=== PATIENT | female | born 1975 | race Caucasian/White ===

== ENCOUNTER 2018-02-02 00:15 | Inpatient (IN) | payer OTHER ==
[2018-02-02] MEDS ORDERED: SODIUM CHLORIDE 0.9% 1,000 ML IV STA (00:25)
[2018-02-02] MEDS ORDERED: MORPHINE SULFATE 2 MG/ML SYRINGE IV STA (00:25)
--- NOTE | 2018-02-02 00:36 | ED ---
General Adult HPI - General Chief complaint: Abdominal Pain Stated complaint: Upper abd pain Time Seen by Provider: 02/02/18 00:25 Source: patient, RN notes reviewed, old records reviewed Mode of arrival: ambulatory Limitations: no limitations - History of Present Illness Initial comments: This is a 42-year-old female the ER for evaluation. Patient does say for evaluation regarding abdominal pain epigastric right upper quadrant abdominal pain radiation to back radiation to shoulder. Positive nausea. Worse when she eats. Symptoms and off for a week, progressively worse tonight sleep. Patient has no prior surgical history. Patient is to have blood pressure issues, states she does not take current blood pressure medication. Denies chest pain denies shortness of breath no episodes of diaphoresis. - Related Data Previous Rx's Medication Instructions Recorded Acetaminophen-Codeine 300-30mg 1 each PO Q6H PRN #18 tablet 02/23/14 [Tylenol #3] Ibuprofen [Motrin] 800 mg PO Q8HR #30 tab 02/23/14 Allergies Allergy/AdvReac Type Severity Reaction Status Date / Time No Known Allergies Allergy Verified 02/02/18 00:21 Review of Systems ROS Statement: Those systems with pertinent positive or pertinent negative responses have been documented in the HPI. ROS Other: All systems not noted in ROS Statement are negative. Past Medical History Past Medical History: No Reported History History of Any Multi-Drug Resistant Organisms: None Reported Additional Past Surgical History / Comment(s): parotid gland mass with lymph nodes Past Psychological History: No Psychological Hx Reported Smoking Status: Current every day smoker Past Alcohol Use History: None Reported Past Drug Use History: None Reported General Exam Limitations: no limitations General appearance: alert, in no apparent distress, anxious, obese Head exam: Present: atraumatic, normocephalic, normal inspection Eye exam: Present: normal appearance, PERRL, EOMI. Absent: scleral icterus, conjunctival injection, periorbital swelling ENT exam: Present: normal exam, mucous membranes moist Neck exam: Present: normal inspection. Absent: tenderness, meningismus, lymphadenopathy Respiratory exam: Present: normal lung sounds bilaterally. Absent: respiratory distress, wheezes, rales, rhonchi, stridor Cardiovascular Exam: Present: normal rhythm, tachycardia, normal heart sounds. Absent: systolic murmur, diastolic murmur, rubs, gallop, clicks GI/Abdominal exam: Present: soft, normal bowel sounds. Absent: distended, tenderness, guarding, rebound, rigid Extremities exam: Present: normal inspection, full ROM, normal capillary refill. Absent: tenderness, pedal edema, joint swelling, calf tenderness Back exam: Present: normal inspection Neurological exam: Present: alert, oriented X3, CN II-XII intact Psychiatric exam: Present: normal affect, normal mood Skin exam: Present: warm, dry, intact, normal color. Absent: rash Course Vital Signs 02/02/18 02/02/18 02/02/18 00:18 02:00 02:17 Temperature 98.3 F Pulse Rate 116 H 85 91 Respiratory 20 18 19 Rate Blood Pressure 214/133 172/84 184/70 O2 Sat by Pulse 99 98 98 Oximetry 02/02/18 02/02/18 03:35 04:00 Temperature Pulse Rate 84 93 Respiratory 16 15 Rate Blood Pressure 176/96 179/83 O2 Sat by Pulse 96 100 Oximetry EKG Findings - EKG Comments: EKG Findings:: EKG shows sinus rhythm rate of 82, NM 170, QRS 88, QTc 443 Medical Decision Making - Medical Decision Making 42 female the ER with nonspecific abdominal, chest pain. Patient is elevated troponin, CT negative. Patient will be admitted for and STEMI, cardiac evaluation - Lab Data Result diagrams: 02/02/18 01:00 02/02/18 01:00 Lab Results 02/02/18 02/02/18 02/02/18 Range/Units 01:00 01:00 01:00 WBC 9.9 (3.8-10.6) k/uL RBC 4.82 (3.80-5.40) m/uL Hgb 13.8 (11.4-16.0) gm/dL Hct 40.1 (34.0-46.0) % MCV 83.2 (80.0-100.0) fL MCH 28.6 (25.0-35.0) pg MCHC 34.4 (31.0-37.0) g/dL RDW 12.8 (11.5-15.5) % Plt Count 227 (150-450) k/uL Neutrophils % 78 % Lymphocytes % 15 % Monocytes % 5 % Eosinophils % 2 % Basophils % 0 % Neutrophils # 7.8 H (1.3-7.7) k/uL Lymphocytes # 1.4 (1.0-4.8) k/uL Monocytes # 0.5 (0-1.0) k/uL Eosinophils # 0.2 (0-0.7) k/uL Basophils # 0.0 (0-0.2) k/uL PT (9.0-12.0) sec INR (<1.2) APTT (22.0-30.0) sec Sodium 140 (137-145) mmol/L Potassium 3.9 (3.5-5.1) mmol/L Chloride 104 (98-107) mmol/L Carbon Dioxide 24 (22-30) mmol/L Anion Gap 12 mmol/L BUN 15 (7-17) mg/dL Creatinine 0.70 (0.52-1.04) mg/dL Est GFR (CKD-EPI)AfAm >90 (>60 ml/min/1.73 sqM) Est GFR (CKD-EPI)NonAf >90 (>60 ml/min/1.73 sqM) Glucose 302 H (74-99) mg/dL Calcium 9.7 (8.4-10.2) mg/dL Total Bilirubin 0.4 (0.2-1.3) mg/dL AST 23 (14-36) U/L ALT 36 (9-52) U/L Alkaline Phosphatase 87 (38-126) U/L Total Creatine Kinase 67 (30-135) U/L CK-MB (CK-2) 1.1 (0.0-2.4) ng/mL CK-MB (CK-2) Rel Index 1.6 Troponin I 0.160 H* (0.000-0.034) ng/mL Total Protein 7.9 (6.3-8.2) g/dL Albumin 4.5 (3.5-5.0) g/dL Amylase 42 (30-110) U/L Lipase 75 (23-300) U/L Urine Color Urine Appearance (Clear) Urine pH (5.0-8.0) Ur Specific [place] (1.001-1.035) Urine Protein (Negative) Urine Glucose (UA) (Negative) Urine Ketones (Negative) Urine Blood (Negative) Urine Nitrite (Negative) Urine Bilirubin (Negative) Urine Urobilinogen (<2.0) mg/dL Ur Leukocyte Esterase (Negative) Urine HCG, Qual (Not Detectd) 02/02/18 02/02/18 02/02/18 Range/Units 01:00 01:00 01:00 WBC (3.8-10.6) k/uL RBC (3.80-5.40) m/uL Hgb (11.4-16.0) gm/dL Hct (34.0-46.0) % MCV (80.0-100.0) fL MCH (25.0-35.0) pg MCHC (31.0-37.0) g/dL RDW (11.5-15.5) % Plt Count (150-450) k/uL Neutrophils % % Lymphocytes % % Monocytes % % Eosinophils % % Basophils % % Neutrophils # (1.3-7.7) k/uL Lymphocytes # (1.0-4.8) k/uL Monocytes # (0-1.0) k/uL Eosinophils # (0-0.7) k/uL Basophils # (0-0.2) k/uL PT 9.5 (9.0-12.0) sec INR 1.0 (<1.2) APTT 22.4 (22.0-30.0) sec Sodium (137-145) mmol/L Potassium (3.5-5.1) mmol/L Chloride (98-107) mmol/L Carbon Dioxide (22-30) mmol/L Anion Gap mmol/L BUN (7-17) mg/dL Creatinine (0.52-1.04) mg/dL Est GFR (CKD-EPI)AfAm (>60 ml/min/1.73 sqM) Est GFR (CKD-EPI)NonAf (>60 ml/min/1.73 sqM) Glucose (74-99) mg/dL Calcium (8.4-10.2) mg/dL Total Bilirubin (0.2-1.3) mg/dL AST (14-36) U/L ALT (9-52) U/L Alkaline Phosphatase (38-126) U/L Total Creatine Kinase (30-135) U/L CK-MB (CK-2) (0.0-2.4) ng/mL CK-MB (CK-2) Rel Index Troponin I (0.000-0.034) ng/mL Total Protein (6.3-8.2) g/dL Albumin (3.5-5.0) g/dL Amylase (30-110) U/L Lipase (23-300) U/L Urine Color Colorless Urine Appearance Clear (Clear) Urine pH 6.0 (5.0-8.0) Ur Specific [place] 1.002 (1.001-1.035) Urine Protein Negative (Negative) Urine Glucose (UA) 4+ H (Negative) Urine Ketones Negative (Negative) Urine Blood Negative (Negative) Urine Nitrite Negative (Negative) Urine Bilirubin Negative (Negative) Urine Urobilinogen <2.0 (<2.0) mg/dL Ur Leukocyte Esterase Negative (Negative) Urine HCG, Qual Not Detected (Not Detectd) - Radiology Data Radiology results: report reviewed (CTA chest abdomen pelvis negative for acute disease, ultrasound color negative for acute disease), image reviewed Critical Care Time Critical Care Time: Yes Total Critical Care Time: 31 Disposition Clinical Impression: NSTEMI (non-ST elevated myocardial infarction) Disposition: ADMITTED IP TO THIS [facility] Condition: Serious Is patient prescribed a controlled substance at d/c from ED?: No
[2018-02-02] MEDS ORDERED: LABETALOL 5 MG/ML VIAL MDV IVP STA (00:57)
[2018-02-02 01:11] LABS: Appearance,Urine Clear (Clear); Basophils % (A) 0 %; Bilirubin,Urine Negative (Negative); Blood,Urine Negative (Negative); Color,Urine Colorless; Eosinophils # (A) 0.2 k/uL (0-0.7); Eosinophils % (A) 2 %; Glucose,Urine (UA) 4+ (Negative); HCT 40.1 % (34.0-46.0); HGB 13.8 gm/dL (11.4-16.0); Ketones,Urine Negative (Negative); Leukocyte Esterase,Urine Negative (Negative); Lymphocytes # (A) 1.4 k/uL (1.0-4.8); Lymphocytes % (A) 15 %; MCH 28.6 pg (25.0-35.0); MCHC 34.4 g/dL (31.0-37.0); MCV 83.2 fL (80.0-100.0); Mean Platelet Volume 7.1; Monocytes # (A) 0.5 k/uL (0-1.0); Monocytes % (A) 5 %; Neutrophils # (A) 7.8 k/uL (1.3-7.7); Neutrophils % (A) 78 %; Nitrite,Urine Negative (Negative); Platelet Count 227 k/uL (150-450); Protein,Urine Negative (Negative); RBC 4.82 m/uL (3.80-5.40); RDW 12.8 % (11.5-15.5); Specific Gravity,Urine 1.002 (1.001-1.035); Urobilinogen,Urine <2.0 mg/dL (<2.0); WBC 9.9 k/uL (3.8-10.6)
[2018-02-02 01:19] LABS: ALT 36 U/L (9-52); AST 23 U/L (14-36); Albumin 4.5 g/dL (3.5-5.0); Alkaline Phosphatase 87 U/L (38-126); Amylase 42 U/L (30-110); Anion Gap 12 mmol/L; Blood Urea Nitrogen 15 mg/dL (7-17); Calcium 9.7 mg/dL (8.4-10.2); Carbon Dioxide 24 mmol/L (22-30); Chloride 104 mmol/L (98-107); Glucose 302 mg/dL (74-99); Lipase 75 U/L (23-300); Potassium 3.9 mmol/L (3.5-5.1); Sodium 140 mmol/L (137-145); Total Bilirubin 0.4 mg/dL (0.2-1.3); Total Protein 7.9 g/dL (6.3-8.2)
[2018-02-02 01:21] LABS: Partial Thromboplastin Time 22.4 sec (22.0-30.0); Prothrombin Time 9.5 sec (9.0-12.0)
[2018-02-02 01:49] LABS: Creatine Kinase MB 1.1 ng/mL (0.0-2.4)
[2018-02-02 01:51] LABS: Troponin I 0.16 ng/mL (0.000-0.034)
--- NOTE | 2018-02-02 02:06 | US ---
EXAMINATION TYPE: US gallbladder DATE OF EXAM: 02/02/2018 COMPARISON: NONE CLINICAL HISTORY: Pain. RUQ pain. EXAM MEASUREMENTS: Liver Length: 19.6 cm Gallbladder Wall: 0.35 cm CBD: 0.43 cm Right Kidney: 10.6 x 4.6 x 5.0 cm Pancreas: Tail obscured by overlying bowel gas Liver: Increased attenuation Gallbladder: No stones seen wall is upper limits. Evidence for sonographic Mabry's sign: No CBD: wnl Right Kidney: wnl IMPRESSION: Negative right upper quadrant abdominal sonogram. No gallstones or dilated ducts. No free fluid.
--- NOTE | 2018-02-02 02:46 | CT ---
EXAMINATION TYPE: CT angio chest DATE OF EXAM: 02/02/2018 2:36 AM COMPARISON: NONE HISTORY: upper abdominal pain CT DLP: 2071.00 mGycm Automated exposure control for dose reduction was used. CONTRAST: CTA scan of the thorax is performed with IV Contrast, patient injected with 100 mL of Isovue 370, pul monary embolism protocol. There are 3-D post processed images.. FINDINGS: There is a 2 x 1 cm reticular infiltrate in the superior segment left lower lobe. The other lung fiel ds are clear. There is no pleural effusion. There is no pericardial effusion. Thoracic aorta shows no evidence of aneurysm or dissection. There are no filling defects in the pulmonary arteries. There ar e no hilar masses. There is no mediastinal adenopathy. The bony thorax is intact. IMPRESSION: SMALL IRREGULAR INFILTRATE IN THE LEFT LOWER LOBE PROBABLY RELATED TO INFLAMMATORY DISEASE. NO EVIDEN CE OF PULMONARY EMBOLISM.
--- NOTE | 2018-02-02 02:48 | CT ---
EXAMINATION TYPE: CT abdomen pelvis w con DATE OF EXAM: 02/02/2018 COMPARISON: NONE HISTORY: upper abdominal pain CT DLP: 2071.00 mGycm Automated exposure control for dose reduction was used. TECHNIQUE: Helical acquisition of images was performed from the lung bases through the pelvis. CONTRAST: Performed without Oral Contrast and with IV Contrast, patient injected with 100 mL of Isovue 370. FINDINGS: The lung bases are clear. There is no pleural effusion. Liver spleen pancreas gallbladder appear normal. Bile ducts are not dilated. There is no adrenal mass . Kidneys show satisfactory contrast opacification. There is no hydronephrosis. There is no retroperi toneal adenopathy. Ureters are not dilated. There is no ascites. Bladder distends smoothly. Uterus is anteverted. I see no bony destructive process. There is spurring in the lower thoracic spine. I see no intestinal wall thickening. There are no dilated loops. Appendix appears normal. IMPRESSION: NEGATIVE CT SCAN OF THE ABDOMEN AND PELVIS. I DO NOT SEE A CAUSE FOR ABDOMINAL PAIN.
[2018-02-02] MEDS ORDERED: HEPARIN SODIUM,PORCINE 5,000 UNIT/ML 1 ML VIAL IV PRN (03:21)
[2018-02-02] MEDS ORDERED: HEPARIN SODIUM,PORCINE 5,000 UNIT/ML 1 ML VIAL IV ONE (03:21)
[2018-02-02] MEDS ORDERED: NITROGLYCERIN SL TABS 0.4 MG TAB SUBLINGUAL PRN ×2 (03:21→10:27)
[2018-02-02] MEDS ORDERED: HEPARIN SODIUM,PORCINE/D5W PMX 25,000 UNIT in DEXTROSE/WATER 1 500ML.BAG IV SCH (03:45)
[2018-02-02 04:20] LABS: Glucose,Whole Blood 222 mg/dL (75-99)
[2018-02-02 06:48] LABS: Glucose,Whole Blood 197 mg/dL (75-99)
[2018-02-02 07:16] LABS: Mean Platelet Volume 7.4; Platelet Count 255 k/uL (150-450)
[2018-02-02 07:45] LABS: Basophils % (A) 0 %; Eosinophils % (A) 0 %; HCT 38.3 % (34.0-46.0); HGB 13.3 gm/dL (11.4-16.0); Lymphocytes # (A) 1.7 k/uL (1.0-4.8); Lymphocytes % (A) 18 %; MCH 29.3 pg (25.0-35.0); MCHC 34.9 g/dL (31.0-37.0); MCV 84.1 fL (80.0-100.0); Monocytes # (A) 0.4 k/uL (0-1.0); Monocytes % (A) 5 %; Neutrophils # (A) 7.3 k/uL (1.3-7.7); Neutrophils % (A) 75 %; RBC 4.55 m/uL (3.80-5.40); WBC 9.7 k/uL (3.8-10.6)
[2018-02-02 07:51] LABS: ALT 40 U/L (9-52); AST 23 U/L (14-36); Albumin 4.2 g/dL (3.5-5.0); Alkaline Phosphatase 81 U/L (38-126); Blood Urea Nitrogen 12 mg/dL (7-17); Calcium 9.3 mg/dL (8.4-10.2); Carbon Dioxide 23 mmol/L (22-30); Creatine Kinase MB 1.5 ng/mL (0.0-2.4); Glucose 201 mg/dL (74-99); Potassium 4.1 mmol/L (3.5-5.1); Sodium 140 mmol/L (137-145); Total Bilirubin 0.6 mg/dL (0.2-1.3); Total Protein 7.5 g/dL (6.3-8.2)
[2018-02-02 07:57] LABS: Troponin I 0.21 ng/mL (0.000-0.034)
[2018-02-02 08:04] LABS: Anion Gap 13 mmol/L; Chloride 104 mmol/L (98-107)
[2018-02-02 08:14] LABS: Glucose,Whole Blood 192 mg/dL (75-99)
[2018-02-02] MEDS: INSULIN ASPART 100 UNIT/ML 1 ML 10 ML VIAL SQ SCH ×4 (08:18→21:32)
[2018-02-02] MEDS: METOPROLOL TARTRATE 50 MG TAB PO SCH ×2 (08:18→21:32)
[2018-02-02] MEDS: ATORVASTATIN 80 MG TAB PO SCH (08:18)
[2018-02-02] MEDS ORDERED: cloNIDine HCL 0.1 MG TAB PO PRN (09:26)
[2018-02-02] MEDS ORDERED: LISINOPRIL 10 MG TAB PO SCH (09:30)
[2018-02-02] MEDS ORDERED: LISINOPRIL 10 MG TAB PO STA (10:08)
[2018-02-02] MEDS ORDERED: SODIUM CHLORIDE 0.9% 1,000 ML in EMPTY BAG 1 BAG IV ONE (10:27)
[2018-02-02] MEDS ORDERED: ATORVASTATIN 80 MG TAB PO STA (10:27)
[2018-02-02] MEDS ORDERED: ALPRAZolam 0.5 MG TAB PO PRN (10:27)
[2018-02-02] MEDS ORDERED: ALPRAZolam 0.25 MG TAB PO PRN (10:27)
[2018-02-02] MEDS ORDERED: ASPIRIN 325 MG TAB PO STA (10:29)
--- NOTE | 2018-02-02 10:53 | CONS ---
CONSULTATION Rachel Orona is a 42-year-old female who presented with right-sided chest discomfort and midsternal heartburn-like symptoms. She has been experiencing this for quite some time now and thought it was her gallbladder. The reason she came in last night is because when she laid down the pain got worse and she found herself quite uncomfortable. On admission, she was worked up for gallstone. She had a CT of the chest, CT of abdomen and gallbladder ultrasound. However, her 12-lead ECG showed sinus rhythm with ST elevation in the inferior leads with IA depression in the inferior leads and in the lateral precordial leads and IA elevation in aVR. Her followup 12-lead ECG shows the IA depression in the inferior leads has become even more prominent and there is clear IA elevation in aVR. She is in sinus rhythm. Cardiac enzymes are abnormal, hence the consult. Cardiac enzymes are 0.16 and 0.21. Labs are reviewed. Her white count is normal. Hemoglobin is normal. Electrolytes are normal. Kidney function is normal. Glucose is elevated. Amylase, lipase are normal. UA shows 4+ glucose. She also has a history of hypertension. PAST HISTORY: Past history of hypertension, increased BMI of 41, diabetes type 2, elevated glucose and recent upper respiratory symptoms, which she thought were allergies. ALLERGIES: No known drug allergies. MEDICATIONS AT HOME: Ibuprofen. She was taking antihypertensive therapy as well as diabetes medication, but these were discontinued because she had lost a significant amount of weight. REVIEW OF SYSTEMS: No recent fever, chills, or rigors. No cough or expectoration. No nausea, vomiting, or diarrhea, but heartburn like symptoms, chest discomfort on the right side around the breast and going around to the back. No hematuria or dysuria. No strokes or seizures. No skin lesions or musculoskeletal complaints. PHYSICAL EXAMINATION: On examination, her blood pressure is elevated 158/77, 189/93 and 189/86 mmHg. Head and neck examination is normal. Heart sounds S1, S2 are normal. No rub. No gallop. No murmurs. Breath sounds are clear. Abdomen is soft, nontender. Extremities are warm. No edema. With deep palpation in the epigastrium, she feels a little uncomfortable. IMPRESSION: 1. Right-sided chest discomfort and heartburn-like symptoms that got worse when she lies flat. A 12-lead ECG shows minimal ST elevation in the inferior leads, but with prominent IA depression in the first as well as in the follow-up ECG in the inferior leads IA elevation in aVR and slight IA depression in the lateral precordial leads. 2. Increased body mass index of greater than 40. 3. Diabetes type 2. 4. Hypertension. SUGGEST: This is most likely viral pericarditis. I will check an ESR as well as viral titers for Coxsackievirus, parvovirus, adeno and echovirus. However, since she has ST elevation with abnormal cardiac enzymes, a coronary angiogram will be considered. I will stop her heparin, increase lisinopril to 20 mg twice daily. Continue statins. Reduce aspirin to 81 mg p.o. daily and a 2D echo and Doppler study. This was discussed with the patient. EDA / LACEY: [id number] /
[2018-02-02] MEDS: LINAGLIPTIN 5 MG TABLET PO SCH (11:00)
--- NOTE | 2018-02-02 12:17 | ECHOF ---
Referral Reason:nstemi MEASUREMENTS -------- HEIGHT: 172.7 cm WEIGHT: 121.6 kg BP: 189/86 IVSd: 1.4 cm (0.6 - 1.1) LVIDd: 5.1 cm (3.9 - 5.3) LVPWd: 1.4 cm (0.6 - 1.1) IVSs: 1.9 cm LVIDs: 3.7 cm LVPWs: 1.5 cm LAESV Index (A-L): 27.63 ml/m Ao Diam: 3.0 cm (2.0 - 3.7) AV Cusp: 2.2 cm (1.5 - 2.6) LA Diam: 3.9 cm (2.7 - 3.8) MV EXCURSION: 11.800 mm (> 18.000) MV EF SLOPE: 259 mm/s (70 - 150) EPSS: 0.6 cm MV E Karthik: 1.14 m/s MV DecT: 184 ms MV A Karthik: 1.06 m/s MV E/A Ratio: 1.07 RAP: 5.00 mmHg RVSP: 8.99 mmHg FINDINGS -------- Sinus rhythm. This was a technically difficult study with suboptimal views. The left ventricular size is normal. There is moderate concentric left ventricular hypertrophy. O verall left ventricular systolic function is normal with, an EF between 55 - 60 %. The right ventricle is normal in size and function. The left atrium is normal in size. The right atrium is normal in size. Lumason used The aortic valve is trileaflet, and appears structurally normal. No aortic stenosis or regurgitation. There is trace mitral regurgitation. Trace tricuspid regurgitation present. The right ventricular systolic pressure, as measured by Dopp ler, is 8.99mmHg. Pulmonic valve appears structurally normal. The aortic root size is normal. The pericardium is normal. CONCLUSIONS -------- 1. Sinus rhythm. 2. This was a technically difficult study with suboptimal views. 3. The left ventricular size is normal. 4. There is moderate concentric left ventricular hypertrophy. 5. The right ventricle is normal in size and function. 6. The left atrium is normal in size. 7. The right atrium is normal in size. 8. Lumason used 9. The aortic valve is trileaflet, and appears structurally normal. No aortic stenosis or regurgitati on. 10. There is trace mitral regurgitation. 11. Trace tricuspid regurgitation present. 12. The right ventricular systolic pressure, as measured by Doppler, is 8.99mmHg. 13. Pulmonic valve appears structurally normal. 14. The aortic root size is normal. 15. The pericardium is normal. STUDENT SUCCESS ADVISOR: Aditi Lui RDCS
[2018-02-02 12:44] LABS: Hemoglobin A1C 7.4 % (4.0-6.0)
--- NOTE | 2018-02-02 12:44 | P.HPIM ---
History of Present Illness H&P Date: 02/02/18 Chief Complaint: abdominal pain/chest pain This is a 42-year-old female patient to be established with Dr. schaffer. Her first appointment is February 11. Patient states that she had pain were running across her abdomen on the right side when around and into the back was a burning type pain. She thought it was related to her gallbladder. She states she sometimes have GERD symptoms as well. She has had this on and off for several weeks but last night it was significantly worse. She states it does not bother her with exertion. She normally walks 5 miles per day. She has had weight loss of 150 pounds through portion control and walking. She denies having obstructive sleep apnea. She has been treated for hypertension and diabetes on the past but was taken off for years ago due to improvement of her numbers. Patient came into [facility] emergency center for evaluation. Her initial blood pressure was 214/133 and patient was given a dose of IV labetalol with improvement. White count and hemoglobin were normal. Blood sugar was 302, creatinine 0.7. Electrolytes were within normal limits. Liver function tests were within normal limits. Urine hCG was not detected. Urinalysis was negative for infection. There was glucose 4+. CT of the abdomen and pelvis with contrast reveals no acute findings. CTA of the chest shows small irregular infiltrate in the left lower lobe probably related to inflammatory disease. No pulmonary embolism. Gallbladder ultrasound is negative. Patient was admitted into the intensive care unit as overflow and started on heparin drip and consult with cardiology requested. Troponins have been 0.160 and 0.210. Echocardiogram reveals EF of 55-60%, moderate concentric left ventricular hypertrophy, trace mitral regurgitation, trace tricuspid regurgitation. Patient has been seen by Dr. Galvez for most likely viral pericarditis. ESR and viral studies ordered heparin drip discontinued and lisinopril increased and reduced aspirin 81 mg. Review of Systems All systems: negative Constitutional: Denies chills, Denies fever Eyes: denies blurred vision, denies pain Ears, nose, mouth and throat: Denies headache, Denies sore throat, Denies vertigo Cardiovascular: Reports chest pain, Denies leg edema, Denies lightheadedness, Denies shortness of breath, Denies syncope Respiratory: Denies congestion, Denies cough, Denies cough with sputum, Denies dyspnea, Denies excessive sputum, Denies hemoptysis, Denies home oxygen, Denies wheezing Gastrointestinal: Reports abdominal pain, Denies diarrhea, Denies nausea, Denies vomiting Genitourinary: Denies dysuria, Denies hematuria, Denies urgency, Denies urinary frequency Musculoskeletal: Denies myalgias Integumentary: Denies pruritus, Denies rash, Denies wounds Neurological: Denies numbness, Denies weakness Psychiatric: Denies anxiety, Denies depression Endocrine: Denies fatigue, Denies weight change Past Medical History Past Medical History: No Reported History, Diabetes Mellitus, Hypertension Additional Past Medical History / Comment(s): hx of hypertension and diabetes on medications for 5 years, lost weight and was taken off medications about 4 years ago, morbid obesity. History of Any Multi-Drug Resistant Organisms: None Reported Additional Past Surgical History / Comment(s): parotid gland mass with lymph nodes Past Anesthesia/Blood Transfusion Reactions: No Reported Reaction Past Psychological History: No Psychological Hx Reported Smoking Status: Former smoker Past Alcohol Use History: None Reported Additional Past Alcohol Use History / Comment(s): Patient has been a smoker of cigarettes for 10 years and quit 3 years ago. She denies any marijuana or street drug use. She drinks alcohol rarely. She is currently unemployed but previously worked in a [employer]. Past Drug Use History: None Reported - Past Family History Father Family Medical History: Diabetes Mellitus, Hypertension Additional Family Medical History / Comment(s): Father is alive at age 62. Mother Additional Family Medical History / Comment(s): Mother is alive at age 58 with no major medical problems. Patient has 2 brothers with no major medical problems. No sisters. Patient is one daughter with no major medical problems. Medications and Allergies Home Medications Medication Instructions Recorded Confirmed Type Ibuprofen [Motrin Ib] 800 mg PO ONCE PRN 02/02/18 02/02/18 History Allergies Allergy/AdvReac Type Severity Reaction Status Date / Time No Known Allergies Allergy Verified 02/02/18 12:14 Physical Exam Vitals: Vital Signs Temp Pulse Pulse Resp BP BP Pulse Ox 02/02/18 09:00 94 18 189/86 02/02/18 08:15 29 H 02/02/18 08:00 100 19 189/93 02/02/18 07:00 84 29 H 158/77 02/02/18 06:00 85 25 H 153/83 100 06/20/18 05:00 86 24 167/81 96 02/02/18 04:25 91 21 192/87 99 02/02/18 04:00 93 15 179/83 100 02/02/18 03:35 84 16 176/96 96 02/02/18 02:17 91 19 184/70 98 02/02/18 02:00 85 18 172/84 98 02/02/18 00:18 98.3 F 116 H 20 214/133 99 Intake and Output 02/01/18 02/02/18 02/02/18 22:59 06:59 14:59 Intake Total 100 Balance 100 Intake: IV 100 Sodium Chloride 0.9% 1, 100 000 ml @ 100 mls/hr IV . Q10H STA Rx#:[id number] Other: Weight 122 kg Gen: This is a morbidly obese 42-year-old female patient. She is sitting up in the ICU bed and appears to be comfortable and in no acute distress. No respiratory distress noted. HEENT: Head is atraumatic, normocephalic. Pupils equal, round. Sclerae is anicteric. NECK: Supple. No JVD. No lymphadenopathy. No thyromegaly. LUNGS: Clear to auscultation. No wheezes or rhonchi. No intercostal retractions. HEART: Regular rate and rhythm. No murmur. ABDOMEN: Morbidly obese. Soft. Bowel sounds are present. No masses. No tenderness. EXTREMITIES: No pedal edema. No calf tenderness. Dorsalis pedis +2 bilaterally. NEUROLOGICAL: Patient is awake, alert and oriented x3. Cranial nerves 2 through 12 are grossly intact. Results CBC & Chem 7: 02/02/18 06:52 02/02/18 06:52 Labs: Abnormal Lab Results - Last 24 Hours (Table) 02/02/18 02/02/18 02/02/18 Range/Units 01:00 01:00 01:00 Neutrophils # 7.8 H (1.3-7.7) k/uL Glucose 302 H (74-99) mg/dL POC Glucose (mg/dL) (75-99) mg/dL Troponin I 0.160 H* (0.000-0.034) ng/mL Urine Glucose (UA) (Negative) 02/02/18 02/02/18 02/02/18 Range/Units 01:00 04:18 06:47 Neutrophils # (1.3-7.7) k/uL Glucose (74-99) mg/dL POC Glucose (mg/dL) 222 H 197 H (75-99) mg/dL Troponin I (0.000-0.034) ng/mL Urine Glucose (UA) 4+ H (Negative) 02/02/18 02/02/18 02/02/18 Range/Units 06:52 06:52 08:11 Neutrophils # (1.3-7.7) k/uL Glucose 201 H (74-99) mg/dL POC Glucose (mg/dL) 192 H (75-99) mg/dL Troponin I 0.210 H* (0.000-0.034) ng/mL Urine Glucose (UA) (Negative) Microbiology - Last 24 Hours (Table) 02/02/18 01:00 Urine Culture - Preliminary Urine,Clean Catch Thrombosis Risk Factor Assmnt - DVT/VTE Prophylaxis DVT/VTE Prophylaxis: Pharmacologic Prophylaxis ordered - Choose All That Apply Any of the Below Risk Factors Present?: Yes Each Factor Represents 1 point: Acute PA, Medical pt on bed rest Other Risk Factors: No Other congenital or acquired thrombophilia - If yes, enter type in comment: No Thrombosis Risk Factor Assessment Total Risk Factor Score: 2 Thrombosis Risk Factor Assessment Level: Low Risk Assessment and Plan Plan: 1. Right-sided chest pain and abdominal pain with elevated troponins, non-ST elevated myocardial infarction not completely ruled out at this point. Cardiology consult is appreciated. The symptoms thought to be most likely viral pericarditis. ESR and viral studies have been ordered. Echocardiogram as above. Heparin drip was discontinued. Continue aspirin 81 mg daily, Lipitor 80 mg daily, metoprolol tartrate 50 mg twice daily colchicine 0.6 mg twice daily. Heart catheterization scheduled. 2. Emergent hypertension status post 1 dose of IV labetalol. Patient started on lisinopril 10 mg increased to 20 mg twice daily, metoprolol tartrate 50 mg twice daily, clonidine as needed for systolic blood pressure greater than 160. 3. Diabetes mellitus type 2. Patient started on Cogentin 5 mg daily (for Januvia), insulin scale before meals and at bedtime. 4. Gastroesophageal reflux disease. Patient started on Pepcid 20 mg daily. Patient will be admitted to the hospital for a minimum of 2 night stay. Discharge plan: Return home Impression and plan of care have been directed as dictated by the signing physician. Francia Villasenor nurse practitioner acting as scribe for signing physician.
[2018-02-02 13:12] LABS: Creatine Kinase MB 1.3 ng/mL (0.0-2.4)
[2018-02-02 13:16] LABS: Troponin I 0.139 ng/mL (0.000-0.034)
[2018-02-02 14:22] LABS: Glucose,Whole Blood 164 mg/dL (75-99)
[2018-02-02] MEDS: FAMOTIDINE 20 MG TAB PO SCH (14:37)
[2018-02-02] MEDS ORDERED: ONDANSETRON 4 MG/2 ML VIAL ONE (16:59)
[2018-02-02] MEDS: ONDANSETRON 4 MG/2 ML VIAL IVP PRN (17:08)
[2018-02-02 19:07] LABS: Glucose,Whole Blood 163 mg/dL (75-99)
[2018-02-02] MEDS: ACETAMINOPHEN TAB 500 MG TAB PO PRN (20:35)
[2018-02-02 20:51] LABS: Glucose,Whole Blood 182 mg/dL (75-99)
[2018-02-02] MEDS: COLCHICINE 0.6 MG EACH PO SCH (21:32)
[2018-02-02] MEDS: LISINOPRIL 20 MG TAB PO SCH (21:33)
[2018-02-03 04:16] LABS: Cholesterol 176 mg/dL (<200); HDL Cholesterol 47 mg/dL (40-60); LDL Cholesterol,Calculated 103 mg/dL (0-99); Triglycerides 131 mg/dL (<150)
[2018-02-03 06:09] LABS: Basophils # (A) 0.1 k/uL (0-0.2); Basophils % (A) 1 %; Eosinophils # (A) 0.1 k/uL (0-0.7); Eosinophils % (A) 1 %; HCT 40.5 % (34.0-46.0); HGB 13.6 gm/dL (11.4-16.0); Lymphocytes # (A) 1.8 k/uL (1.0-4.8); Lymphocytes % (A) 17 %; MCH 28.2 pg (25.0-35.0); MCHC 33.6 g/dL (31.0-37.0); Mean Platelet Volume 7.6; Monocytes # (A) 0.6 k/uL (0-1.0); Monocytes % (A) 6 %; Neutrophils # (A) 7.7 k/uL (1.3-7.7); Neutrophils % (A) 74 %; Platelet Count 263 k/uL (150-450); RBC 4.82 m/uL (3.80-5.40); RDW 13.2 % (11.5-15.5); WBC 10.4 k/uL (3.8-10.6)
[2018-02-03 06:24] LABS: Anion Gap 13 mmol/L; Blood Urea Nitrogen 15 mg/dL (7-17); Calcium 9.4 mg/dL (8.4-10.2); Carbon Dioxide 22 mmol/L (22-30); Chloride 103 mmol/L (98-107); Glucose 193 mg/dL (74-99); Magnesium 1.8 mg/dL (1.6-2.3); Phosphorus 3.6 mg/dL (2.5-4.5); Sodium 138 mmol/L (137-145)
[2018-02-03 07:03] LABS: Glucose,Whole Blood 181 mg/dL (75-99)
[2018-02-03] MEDS: FAMOTIDINE 20 MG TAB PO SCH (08:03)
[2018-02-03] MEDS: ATORVASTATIN 80 MG TAB PO SCH (08:03)
[2018-02-03] MEDS: METOPROLOL TARTRATE 50 MG TAB PO SCH ×2 (08:03→20:15)
[2018-02-03] MEDS: LISINOPRIL 20 MG TAB PO SCH (08:04)
[2018-02-03] MEDS: COLCHICINE 0.6 MG EACH PO SCH (08:04)
[2018-02-03] MEDS: INSULIN ASPART 100 UNIT/ML 1 ML 10 ML VIAL SQ SCH ×4 (08:18→21:17)
[2018-02-03] MEDS: LINAGLIPTIN 5 MG TABLET PO SCH (08:21)
[2018-02-03] MEDS ORDERED: ASPIRIN 81 MG PO SCH (09:00)
[2018-02-03] MEDS ORDERED: ASPIRIN 325 MG TAB PO SCH (09:00)
[2018-02-03] MEDS ORDERED: MIDAZOLAM 2 MG/2 ML VIAL ONE (10:09)
[2018-02-03] MEDS ORDERED: VERAPAMIL 2.5 MG/ML 2 ML AMP ONE (10:09)
[2018-02-03] MEDS ORDERED: fentaNYL (PF) 50 MCG/ML 2 ML AMP ONE (10:10)
[2018-02-03] MEDS ORDERED: HEPARIN SODIUM 1,000 UN/ML (10ML VL) ONE (10:10)
[2018-02-03] MEDS ORDERED: SODIUM CHLORIDE 0.9% 1,000 ML IV ONE (10:15)
[2018-02-03] MEDS ORDERED: fentaNYL (PF) 50 MCG/ML 2 ML AMP IVP ONE (10:22)
[2018-02-03] MEDS ORDERED: MIDAZOLAM 2 MG/2 ML VIAL IVP ONE (10:22)
[2018-02-03] MEDS ORDERED: LIDOCAINE 2% INJ 20 MG/ML SQ ONE (10:27)
[2018-02-03] MEDS ORDERED: VERAPAMIL SYRINGE (5 MG/10 ML) INTRAARTER ONE (10:44)
[2018-02-03] MEDS ORDERED: METOPROLOL TARTRATE 5 MG/5 ML VIAL IVP ONE ×2 (10:49→10:52)
[2018-02-03] MEDS ORDERED: CLOPIDOGREL 75 MG TAB ONE (10:54)
[2018-02-03] MEDS ORDERED: CLOPIDOGREL 75 MG TAB PO ONE (10:57)
[2018-02-03] MEDS ORDERED: NITROGLYCERIN OINT 1 INCH/GM PACKET TOPICAL ONE ×2 (11:13→11:14)
--- NOTE | 2018-02-03 11:16 | P.CARDCATH ---
Date of Procedure: 02/03/18 Preoperative Diagnosis: Non-ST elevation MD Postoperative Diagnosis: Critical lesion involving the mid LAD Procedure(s) Performed: Left heart catheterization without left ventriculography Description of Procedure: HISTORY: This is a 42-year-old female who was admitted to the hospital with complaints of chest pain and positive troponins. EKGs are nonspecific. Patient was advised to have cardiac catheterization for definitive diagnosis. CONSENT:I have discussed the risks, benefits and alternative therapies for the above-mentioned procedure and for both sedation/analgesia as well as necessary blood product administration, if indicated, as they pertain to this patient. The patient has indicated understanding and acceptance of the risks and procedures discussed. [] PROCEDURE: Patient was brought to the lab in a fasting state. Patient was given some IV sedation. The right Wrist is infiltrated with lidocaine and right Radial artery was entered using Seldinger technique. A 6-Ukrainian catheter was left in place and selective coronary arteriography was performed. Patient tolerated the procedure well. No immediate complications were noted and patientIs waiting to have stent placement of the LAD by Dr. Alvares. Conscious Sedation: Versed 1mg Fentanyl 50 g Duration 35minutes HEMODYNAMICS: The aortic pressure is about 160/97. Left ventricular end- diastolic pressure is about 20. There was no gradient across the aortic valve. SELECTIVE CORONARY ARTERIOGRAPHY: LEFT MAIN: Large caliber and free of occlusive disease. Immediately divides into intermediate circumflex and also left anterior descending. THE LEFT ANTERIOR DESCENDING CORONARY ARTERY: This is a large caliber vessel with 95% stenosis in the mid LAD. THE INTERMEDIATE CORONARY ARTERY: This is a good caliber vessel and free of occlusive disease THE LEFT CIRCUMFLEX AND IS CORONARY ARTERY: This is a good caliber vessel free of occlusive disease THE RIGHT CORONARY ARTERY: This is a dominant vessel free of occlusive disease LEFT VENTRICULOGRAPHY: Not performed FINAL IMPRESSION: Critical lesion involving the mid LAD. Rest of the arteries are free of occlusive disease PLAN:Stent placement of the LAD. PROGNOSIS: Fair with successful therapy
[2018-02-03] MEDS ORDERED: BIVALIRUDIN BOLUS 250 MG/50 ML IV ONE (11:25)
[2018-02-03] MEDS ORDERED: BIVALIRUDIN 250 MG in SODIUM CHLORIDE 0.9% 50 ML IV ONE (11:27)
[2018-02-03] MEDS ORDERED: NITROGLYCERIN 1000MCG/10ML SYRINGE INTRACORON ONE (11:35)
[2018-02-03] MEDS ORDERED: IOPAMIDOL-370 125ML BTL INJ ONE (11:36)
[2018-02-03] MEDS ORDERED: IOPAMIDOL-300 50ML BTL INJ ONE (11:44)
[2018-02-03] MEDS ORDERED: ZOLPIDEM 5 MG TAB PO PRN (11:53)
[2018-02-03] MEDS ORDERED: RX INFO: IV CONTRAST WAS GIVEN 1 EACH MISC MISCELLANE PRN (11:53)
[2018-02-03] MEDS ORDERED: MAG HYDROX/AL HYDROX/SIMETH 30 ML CUP PO PRN (11:53)
[2018-02-03] MEDS ORDERED: NITROGLYCERIN SL TABS 0.4 MG TAB SUBLINGUAL PRN (11:53)
[2018-02-03] MEDS ORDERED: ATROPINE SULFATE 0.1 MG/ML 10ML SYRINGE IV PRN (11:53)
[2018-02-03] MEDS ORDERED: SODIUM CHLORIDE 0.9% 1,000 ML IV SCH (12:00)
--- NOTE | 2018-02-03 12:16 | PTCA ---
PERCUTANEOUSTRANS CORORONARY ANGIOGRAPHY CORONARY ANGIOPLASTY PROCEDURE NOTE Ms. Orona is a 42-year-old female with known history of diabetes, hypertension, who presented with symptoms of chest discomfort and had mild elevation of the troponin. She underwent cardiac catheterization by Dr. Pagan and was found to have critical stenosis involving the mid LAD. In view of that, recommendation was made regarding angioplasty and stenting. The procedure as well as the risks and the complications were discussed with the patient who is in full understanding and agreement. PROCEDURE: A 6-Lao EBU 3.75 guiding catheter introduced in the system after cannulating the left main, a 0.014 balanced medium weight J-wire was advanced across the lesion and positioned distally. Following that, a 2.5 x 12 mm Trek balloon was advanced and one inflation at 10 atmospheres was done. Following that, the balloon was removed and a 3.0 x 18 mm Xience Alpine stent was deployed postdilated at 14 atmospheres. After the last inflation, after appropriate wait, the balloon and the guidewire were withdrawn back in the guiding catheter. Images were obtained and repeated. Those images reveal stable successful stenting. At that point, the guiding catheter, the balloon and the guidewire were removed. The sheath was removed. Hemostasis was obtained with deployment of a TR band. There was no immediate complication. Patient is returned to her room in stable condition. Of note, the patient had chest discomfort and EKG changes with the inflation that resolved at the end procedure. She received Angiomax per protocol as well as oral loading dose of clopidogrel. RESULTS: Successful stenting of the mid LAD with reduction of stenosis from 95% to 0%. RECOMMENDATION: The patient will be continued on aspirin, Plavix and statin. The importance of dual antiplatelet treatment were discussed with the patient and her family and are in full understanding and agreement. DURATION OF PROCEDURE: 19 minutes. MMODL / IJN: [id number] /
--- NOTE | 2018-02-03 12:19 | LTR ---
February 03, 2018 Re: EduardmelaniRachel Dear Dr. Corrigan: I had the opportunity to perform coronary angioplasty and stenting on Ms. Orona at [facility] on the 03 of February and a full copy of the procedure note will be forwarded to you. In brief, she was found to have critical stenosis involving the mid LAD and underwent successful stenting of that vessel using a drug-eluting stent. I am hopeful that this procedure will stabilize her status. Thank you again for allowing me the opportunity to participate in her care. Please feel free to call for any questions. Sincerely yours, MD ELLSI JaegerL / [place]: [id number] /
[2018-02-03] MEDS: ONDANSETRON 4 MG/2 ML VIAL IVP PRN (12:52)
[2018-02-03 12:57] LABS: Glucose,Whole Blood 162 mg/dL (75-99)
[2018-02-03] MEDS: HYDROCHLOROTHIAZIDE 25 MG TAB PO SCH (12:59)
--- NOTE | 2018-02-03 13:17 | P.PN ---
Subjective This is a 42-year-old female patient to be established with Dr. schaffer. Her first appointment is February 11. Patient states that she had pain were running across her abdomen on the right side when around and into the back was a burning type pain. She thought it was related to her gallbladder. She states she sometimes have GERD symptoms as well. She has had this on and off for several weeks but last night it was significantly worse. She states it does not bother her with exertion. She normally walks 5 miles per day. She has had weight loss of 150 pounds through portion control and walking. She denies having obstructive sleep apnea. She has been treated for hypertension and diabetes on the past but was taken off for years ago due to improvement of her numbers. Patient came into [facility] emergency center for evaluation. Her initial blood pressure was 214/133 and patient was given a dose of IV labetalol with improvement. White count and hemoglobin were normal. Blood sugar was 302, creatinine 0.7. Electrolytes were within normal limits. Liver function tests were within normal limits. Urine hCG was not detected. Urinalysis was negative for infection. There was glucose 4+. CT of the abdomen and pelvis with contrast reveals no acute findings. CTA of the chest shows small irregular infiltrate in the left lower lobe probably related to inflammatory disease. No pulmonary embolism. Gallbladder ultrasound is negative. Patient was admitted into the intensive care unit as overflow and started on heparin drip and consult with cardiology requested. Troponins have been 0.160 and 0.210. Echocardiogram reveals EF of 55-60%, moderate concentric left ventricular hypertrophy, trace mitral regurgitation, trace tricuspid regurgitation. Patient has been seen by Dr. Galvez for most likely viral pericarditis. ESR and viral studies ordered heparin drip discontinued and lisinopril increased and reduced aspirin 81 mg. 02/03: Patient underwent cardiac catheterization today she was noted to have critical lesion involving the mid LAD, she did undergo successful stenting of the mid LAD. She'll continue on her aspirin, Lipitor, metoprolol and Plavix. Glucose elevated, hemoglobin A1c 7.4, will continue on Tradjenta 5 mg daily and Novolog. Objective - Vital Signs Vital signs: Vital Signs Temp 98.0 F 02/03/18 07:38 Pulse 69 02/03/18 04:00 Resp 18 02/03/18 08:00 BP 152/74 02/03/18 07:38 Pulse Ox 99 02/03/18 04:00 Intake & Output 02/02/18 02/03/18 02/03/18 18:59 06:59 18:59 Intake Total 100 350 110 Output Total 0 Balance 100 350 110 Weight 121.8 kg Intake: IV 100 110 Sodium Chloride 0.9% 1, 100 000 ml @ 100 mls/hr IV . Q10H STA Rx#:[id number] Oral 350 Output: Urine 0 Other: Voiding Method Toilet Toilet # Voids 2 - Exam gen: This is a morbidly obese 42-year-old female patient. She is sitting up in the ICU bed and appears to be comfortable and in no acute distress. No respiratory distress noted. HEENT: Head is atraumatic, normocephalic. Pupils equal, round. Sclerae is anicteric. NECK: Supple. No JVD. No lymphadenopathy. No thyromegaly. LUNGS: Clear to auscultation. No wheezes or rhonchi. No intercostal retractions. HEART: Regular rate and rhythm. No murmur. ABDOMEN: Morbidly obese. Soft. Bowel sounds are present. No masses. No tenderness. EXTREMITIES: No pedal edema. No calf tenderness. Dorsalis pedis +2 bilaterally. NEUROLOGICAL: Patient is awake, alert and oriented x3. Cranial nerves 2 through 12 are grossly intact. - Labs CBC & Chem 7: 02/03/18 05:45 02/03/18 05:45 Labs: Abnormal Lab Results - Last 24 Hours (Table) 02/02/18 02/02/18 02/02/18 Range/Units 06:52 06:52 12:29 Glucose (74-99) mg/dL POC Glucose (mg/dL) (75-99) mg/dL Hemoglobin A1c 7.4 H (4.0-6.0) % Troponin I 0.139 H* (0.000-0.034) ng/mL LDL Cholesterol, Calc 103 H (0-99) mg/dL 02/02/18 02/02/18 02/02/18 Range/Units 14:19 17:28 19:06 Glucose (74-99) mg/dL POC Glucose (mg/dL) 164 H 163 H (75-99) mg/dL Hemoglobin A1c (4.0-6.0) % Troponin I 0.102 H* (0.000-0.034) ng/mL LDL Cholesterol, Calc (0-99) mg/dL 02/02/18 02/03/18 02/03/18 Range/Units 20:50 05:45 07:01 Glucose 193 H (74-99) mg/dL POC Glucose (mg/dL) 182 H 181 H (75-99) mg/dL Hemoglobin A1c (4.0-6.0) % Troponin I (0.000-0.034) ng/mL LDL Cholesterol, Calc (0-99) mg/dL 02/03/18 Range/Units 12:55 Glucose (74-99) mg/dL POC Glucose (mg/dL) 162 H (75-99) mg/dL Hemoglobin A1c (4.0-6.0) % Troponin I (0.000-0.034) ng/mL LDL Cholesterol, Calc (0-99) mg/dL Microbiology - Last 24 Hours (Table) 02/02/18 01:00 Urine Culture - Preliminary Urine,Clean Catch Assessment and Plan Plan: 1. Right-sided chest pain and abdominal pain with elevated troponins, non-ST elevated myocardial infarction, status post cardiac catheterization and successful stenting of the mid LAD. Cardiology consult is appreciated. Echocardiogram as above. Heparin drip was discontinued. Continue aspirin 81 mg daily, Lipitor 80 mg daily, metoprolol tartrate 50 mg twice daily, plavix 75mg daily. 2. Emergent hypertension status post 1 dose of IV labetalol. Patient started on lisinopril 10 mg increased to 20 mg twice daily, metoprolol tartrate 50 mg twice daily, clonidine as needed for systolic blood pressure greater than 160. 3. Diabetes mellitus type 2. Patient started on Trajenta 5 mg daily (for Januvia), insulin scale before meals and at bedtime. 4. Gastroesophageal reflux disease. Patient started on Pepcid 20 mg daily. Patient will be admitted to the hospital for a minimum of 2 night stay. Discharge plan: Return home The above impression and plan of care have been discussed and directed by signing physician. Radha Limon nurse practitioner acting as scribe for signing physician.
[2018-02-03 16:57] LABS: Glucose,Whole Blood 181 mg/dL (75-99)
[2018-02-03] MEDS: ACETAMINOPHEN TAB 500 MG TAB PO PRN (18:46)
[2018-02-03] MEDS: LISINOPRIL 10 MG TAB PO SCH (20:15)
[2018-02-03 21:10] LABS: Glucose,Whole Blood 125 mg/dL (75-99)
[2018-02-03 22:09] VITALS: RESP 16; TEMP 97.5
[2018-02-04 06:09] LABS: Glucose,Whole Blood 135 mg/dL (75-99)
[2018-02-04] MEDS: INSULIN ASPART 100 UNIT/ML 1 ML 10 ML VIAL SQ SCH (06:13)
[2018-02-04 07:51] LABS: Anion Gap 13 mmol/L; Blood Urea Nitrogen 14 mg/dL (7-17); Calcium 9.1 mg/dL (8.4-10.2); Carbon Dioxide 22 mmol/L (22-30); Chloride 101 mmol/L (98-107); Glucose 143 mg/dL (74-99); Potassium 3.9 mmol/L (3.5-5.1); Sodium 136 mmol/L (137-145)
[2018-02-04] MEDS ORDERED: ASPIRIN 81 MG PO SCH (09:00)
[2018-02-04] MEDS: HYDROCHLOROTHIAZIDE 25 MG TAB PO SCH (09:56)
[2018-02-04] MEDS: FAMOTIDINE 20 MG TAB PO SCH (09:56)
[2018-02-04] MEDS: ATORVASTATIN 80 MG TAB PO SCH (09:56)
[2018-02-04] MEDS: LISINOPRIL 10 MG TAB PO SCH (09:57)
[2018-02-04] MEDS: METOPROLOL TARTRATE 50 MG TAB PO SCH (09:57)
[2018-02-04] MEDS: LINAGLIPTIN 5 MG TABLET PO SCH (09:57)
--- NOTE | 2018-02-04 11:07 | P.DS ---
Providers Date of admission: 02/02/18 03:23 Attending physician: Madelyn Corrigan Consults: 02/02/18 03:21 Consult Physician Urgent Consulting Provider: Magno Alvares Consult Reason/Comments: elevTrop Do you want consulting provider notified?: Yes 02/03/18 11:53 Consult Physician Routine Consulting Provider: [facility] Consult Reason/Comments: Post Interventional patient Do you want consulting provider notified?: Already Contacted Primary care physician: Madelyn Corrigan [facility] Course: This is a 42-year-old female patient to be established with Dr. Corrigan. Her first appointment is February 11. Patient states that she had pain were running across her abdomen on the right side when around and into the back was a burning type pain. She thought it was related to her gallbladder. She states she sometimes have GERD symptoms as well. She has had this on and off for several weeks but last night it was significantly worse. She states it does not bother her with exertion. She normally walks 5 miles per day. She has had weight loss of 150 pounds through portion control and walking. She denies having obstructive sleep apnea. She has been treated for hypertension and diabetes on the past but was taken off for years ago due to improvement of her numbers. Patient came into [facility] emergency center for evaluation. Her initial blood pressure was 214/133 and patient was given a dose of IV labetalol with improvement. White count and hemoglobin were normal. Blood sugar was 302, creatinine 0.7. Electrolytes were within normal limits. Liver function tests were within normal limits. Urine hCG was not detected. Urinalysis was negative for infection. There was glucose 4+. CT of the abdomen and pelvis with contrast reveals no acute findings. CTA of the chest shows small irregular infiltrate in the left lower lobe probably related to inflammatory disease. No pulmonary embolism. Gallbladder ultrasound is negative. Patient was admitted into the intensive care unit as overflow and started on heparin drip and consult with cardiology requested. Troponins have been 0.160 and 0.210. Echocardiogram reveals EF of 55-60%, moderate concentric left ventricular hypertrophy, trace mitral regurgitation, trace tricuspid regurgitation. Patient has been seen by Dr. Galvez for most likely viral pericarditis. ESR and viral studies ordered heparin drip discontinued and lisinopril increased and reduced aspirin 81 mg. 02/03: Patient underwent cardiac catheterization today she was noted to have critical lesion involving the mid LAD, she did undergo successful stenting of the mid LAD. She'll continue on her aspirin, Lipitor, metoprolol and Plavix. Glucose elevated, hemoglobin A1c 7.4, will continue on Tradjenta 5 mg daily and Novolog. Following her angioplasty and stent placement patient is feeling much better, secondary prevention was started continue current management. Patient will be discharged home today to follow with Dr. Corrigan and cardiology as an outpatient. 1. Acute coronary syndrome with non-ST elevation myocardial infarction with finding consistent with severe stenosis of the mid LAD require an angioplasty and stent placement done successfully with cardiology patient is doing very well and will benefit from secondary prevention which will be done from here on. 2. Right-sided chest pain and abdominal pain with elevated troponins, non-ST elevated myocardial infarction, status post cardiac catheterization and successful stenting of the mid LAD. Cardiology consult is appreciated. Echocardiogram as above. Heparin drip was discontinued. Continue aspirin 81 mg daily, Lipitor 80 mg daily, metoprolol tartrate 50 mg twice daily, plavix 75mg daily. 2. Emergent hypertension status post 1 dose of IV labetalol. Patient started on lisinopril 10 mg increased to 20 mg twice daily, metoprolol tartrate 50 mg twice daily, clonidine as needed for systolic blood pressure greater than 160. 3. Diabetes mellitus type 2. Patient started on Trajenta 5 mg daily (for Januvia), insulin scale before meals and at bedtime. 4. Gastroesophageal reflux disease. Patient started on Pepcid 20 mg daily. Patient is very stable medically will be discharged home today 02/04/2018. Patient Condition at Discharge: Serious Plan - Discharge Summary Discharge Rx Participant: Yes New Discharge Prescriptions: New Acetaminophen Tab [Tylenol] 1,000 mg PO Q6HR PRN tab PRN Reason: Fever and/ or MILD Pain Aspirin 81 mg PO DAILY chew Atorvastatin [Lipitor] 80 mg PO DAILY #30 tab Clopidogrel [Plavix] 75 mg PO DAILY #30 tab Famotidine [Pepcid] 20 mg PO DAILY #30 tab Hydrochlorothiazide [Hydrodiuril] 25 mg PO DAILY #30 tab Linagliptin [Tradjenta] 5 mg PO DAILY tablet Losartan [Cozaar] 50 mg PO DAILY #30 tab Metoprolol Tartrate [Lopressor] 50 mg PO BID #60 tab Nitroglycerin Sl Tabs [Nitrostat] 0.4 mg SUBLINGUAL Q5M PRN #25 tab PRN Reason: Chest Pain Discontinued Ibuprofen [Motrin Ib] 800 mg PO ONCE PRN PRN Reason: Pain Discharge Medication List Acetaminophen Tab [Tylenol] 1,000 mg PO Q6HR PRN tab 02/04/18 [Rx] Aspirin 81 mg PO DAILY chew 02/04/18 [Rx] Atorvastatin [Lipitor] 80 mg PO DAILY #30 tab 02/04/18 [Rx] Clopidogrel [Plavix] 75 mg PO DAILY #30 tab 02/04/18 [Rx] Famotidine [Pepcid] 20 mg PO DAILY #30 tab 02/04/18 [Rx] Hydrochlorothiazide [Hydrodiuril] 25 mg PO DAILY #30 tab 02/04/18 [Rx] Linagliptin [Tradjenta] 5 mg PO DAILY tablet 02/04/18 [Rx] Losartan [Cozaar] 50 mg PO DAILY #30 tab 02/04/18 [Rx] Metoprolol Tartrate [Lopressor] 50 mg PO BID #60 tab 02/04/18 [Rx] Nitroglycerin Sl Tabs [Nitrostat] 0.4 mg SUBLINGUAL Q5M PRN #25 tab 02/04/18 [Rx ] Follow up Appointment(s)/Referral(s): Breezy Galvez MD [STAFF PHYSICIAN] - 02/11/18 11:30 am (Wednesday) Patient Instructions/Handouts: *Surgery [facility] - After Heart Catheterization - Medical Intern Instructions, Left Heart Catheterization (DC) Discharge Disposition: HOME SELF-CARE
[2018-02-04 11:18] VITALS: BMI 41.5
--- NOTE | 2018-02-04 11:18 | P.PN ---
Subjective Progress Note Date: 02/04/18 Principal diagnosis: Severe symptomatic bradycardia, change mental status, hypertension, hypothyroidism, UTI and debility. 75-year-old female one of our office patient with past medical history of CVA/TIA, history of hypertension, history of memory impairment history of osteoarthritis and history of breast cancer who was in the office in 02-[address] Hackett, patient found to be slightly confused having severe abnormal balance gait and presyncope with symptoms consistent with tiredness fatigue confusion not been able to ambulate have been having problem with her balance and gait. Through her exam found to have severely low pulse rate running in the 40s and have concern of TIA versus CVA. Patient was sent to the emergency department at [facility] where was seen and evaluated. Surprisingly blood pressure was moderately elevated her pulse rate continue to be in the low 40 no other abnormality her troponin came back negative normal chemistry and blood count magnesium was normal. CT of the brain showed left frontal increased density of the cortical area consistent with small area of residual calcification was found pre-or MRI and CAT scan. Patient was diagnosed with severe symptomatic bradycardia, presyncope along with systemic complain consistent with her bradycardia. Was admitted to the hospital might needed pacemaker. Patient troponin 3 will be done overnight will be seen cardiology and if no other factor for her bradycardia patient might need dual-chamber pacemaker. 02/03: Patient was evaluated today, she is still having symptomatic bradycardia. Heart rate is running in the 40s, blood pressure stable, plans are for a dual- chamber pacemaker tomorrow. She underwent echocardiogram yesterday, reveals EF between 55-60%, trace amount of aortic regurgitation, mild aortic stenosis, mild mitral regurgitation and mild tricuspid regurgitation. 02/04 2018: Patient is doing much better still feeling fatigue and tiredness still having problem with balance and gait and ambulation, we'll brought licensed social worker to the picture along with physical therapy. Patient might need to go to rehab after her pacemaker. She is awaiting for pacemaker to be done today. Objective - Vital Signs Vital signs: Vital Signs Temp 97.5 F L 02/04/18 08:00 Pulse 82 02/04/18 08:37 Resp 16 02/04/18 08:00 BP 134/83 02/04/18 08:37 Pulse Ox 96 02/04/18 08:37 Intake & Output 02/03/18 02/04/1818 18:59 06:59 18:59 Intake Total 650 100 90 Balance 650 100 90 Weight 123.8 kg Intake: IV 110 Intake, IV Titration 100 Amount Sodium Chloride 0.9% 1, 100 000 ml @ 100 mls/hr IV . Q10H HEATHER Rx#:[id number] Oral 540 90 Other: Voiding Method Toilet Toilet # Voids 0 1 - Exam Review Of Systems: CONSTITUTIONAL: Well-developed no acute respiratory distress. EYES: No icterus sclerae, no conjunctivitis. EARS, NOSE, MOUTH, THROAT, and FACE: No sore throat, lymphadenopathy, carotid bruits or deformity. RESPIRATORY: No SOB cough or wheezes. CARDIOVASCULAR: No CP, bradycardia, no PND, Orthopnea, or angina. GASTROINTESTINAL: No Abd pain, Nausea or vomiting, no Diarrhea or constipation, No GI Bleed, no distention or masses. GENITOURINARY: Negative for Hematuria or UTI, no kidney stones. INTEGUMENT/BREAST: Negative for any muscular injury with mild osteoarthritis.. HEMATOLOGIC/LYMPHATIC: Negative for bleed or purpura. MUSCULOSKELTAL: Mild Myalgia and arthralgia. NEURLOGICAL: No LOC, Sz or syncope, blurred vision dizziness or abnormality, still have slight change mental status, possibly abnormal gait. BEHAVIORAL/PSYCH: Negative. ENDOCRINE: Negative. Physical Examination: General Appearance: Alert, cooperative, no distress, appears stated age. Neck HEENT: Supple, no lymphadenopathy, no thyroid enlargement, no carotid bruits. Lungs: Clear to auscultation without crackles or wheezes no rhonchi, no deformity. Chest Wall: Chest wall normal expansion with deep inspiration no tenderness and no deformity was found on exam, no costochondral pain or discomfort. Heart: Regular rate and rhythm, S1, S2 normal, no murmur, rub or gallop. Back: Symmetric, no curvature, ROM normal, no CVA tenderness. Abdomen: Soft, non-tender, bowel sounds active all four quadrants, no masses, no organomegaly. Extremities: Extremities normal, atraumatic, no cyanosis or edema. Pulses: 2+ and symmetric. Skin: Skin color, texture, tugor normal, no rashes or lesions. Neurologic: Alert oriented x3 cranial nerves II through XII intact, no motor deficit, no abnormal balance or gait. - Labs CBC & Chem 7: 02/03/18 05:45 02/04/18 06:36 Labs: Abnormal Lab Results - Last 24 Hours (Table) 02/03/18 02/03/18 02/03/18 Range/Units 12:55 16:46 21:09 Sodium (137-145) mmol/L Glucose (74-99) mg/dL POC Glucose (mg/dL) 162 H 181 H 125 H (75-99) mg/dL 02/04/18 02/04/18 Range/Units 06:08 06:36 Sodium 136 L (137-145) mmol/L Glucose 143 H (74-99) mg/dL POC Glucose (mg/dL) 135 H (75-99) mg/dL Microbiology - Last 24 Hours (Table) 02/02/18 01:00 Urine Culture - Final Urine,Clean Catch Assessment and Plan Plan: 1 severe symptomatic bradycardia: Patient will be hospitalized will keep watching patient on heart monitor, TSH free T4 are WNL, repeat EKG, cardiology on consult, echocardiogram completed, plan for dual-chamber pacemaker today. 2 mild change mental status: CT of the brain did not show any major abnormality , but consistent with small vessel disease with previous TIA and CVA has not changed the last few years. With the severity of the bradycardia patient might have worsening mentation because of the bradycardia. 3 hypertension: Blood pressure is better controlled today. 4 hypothyroidism: TSH free T4 are WNL 5 UTI: Patient was started on antibiotics will watch for the final culture. 6 history of breast cancer: Has been in remission. 7 chronic history of depression: Has been on Zoloft 200 mg daily. 8 hyperlipidemia: Remain on Crestor 5 mg daily. 9 mild memory impairment: Most likely from small vessel disease and affected by mild metabolic encephalopathy and bradycardia try to treat underlying disease and if needed might benefit from memory medication in the future. 10 GERD/GI prophylaxis: Patient will be on Pepcid 20 mg daily. 11 debility: Following her pacemaker will increased mobility with physical therapy and prepare hopefully for short-term rehab.
[2018-02-04 11:19] VITALS: BP 137/89; PULSE 67
[2018-02-04 11:45] LABS: Glucose,Whole Blood 153 mg/dL (75-99)
[2018-02-04] MEDS ORDERED: CLOPIDOGREL 75 MG TAB PO SCH (11:54)
--- NOTE | 2018-02-04 12:45 | P.PN ---
Subjective Patient is doing well from a cardiac standpoint. She still continues to have the heartburn symptoms as before. She was admitted with chest discomfort of 2 different types #1. Right-sided chest discomfort that radiated around under her breast to the back which is relieved with colchicine, prior to coronary angiography #2 heartburn-like symptoms Discomfort would get worse with lying down First 12-lead ECG showed sinus rhythm with UT depression, mild which became more prominent in the follow-up twelve-lead ECG. A diagnosis of Carlos- pericarditis was made since she had mildly abnormal troponins. 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 Zacarias as an outpatient Objective - Vital Signs Vital signs: Vital Signs Temp 97.5 F L 02/04/18 08:00 Pulse 67 02/04/18 11:17 Resp 16 02/04/18 11:17 BP 137/89 02/04/18 11:17 Pulse Ox 99 02/04/18 11:17 Intake & Output 02/03/18 02/04/18 02/04/18 18:59 06:59 18:59 Intake Total 650 100 90 Balance 650 100 90 Weight 123.8 kg 123.8 kg Intake: IV 110 Intake, IV Titration 100 Amount Sodium Chloride 0.9% 1, 100 000 ml @ 100 mls/hr IV . Q10H HEATHER Rx#:[id number] Oral 540 90 Other: Voiding Method Toilet Toilet # Voids 0 1 - Labs CBC & Chem 7: 02/03/18 05:45 02/04/18 06:36 Labs: Abnormal Lab Results - Last 24 Hours (Table) 02/03/18 02/03/18 02/03/18 Range/Units 12:55 16:46 21:09 Sodium (137-145) mmol/L Glucose (74-99) mg/dL POC Glucose (mg/dL) 162 H 181 H 125 H (75-99) mg/dL 02/04/18 02/04/18 02/04/18 Range/Units 06:08 06:36 11:43 Sodium 136 L (137-145) mmol/L Glucose 143 H (74-99) mg/dL POC Glucose (mg/dL) 135 H 153 H (75-99) mg/dL Microbiology - Last 24 Hours (Table) 02/02/18 01:00 Urine Culture - Final Urine,Clean Catch
== END 2018-02-04 12:09 | disposition home or self-care (01) | DRG 247 ==
LOC: EC 00:15 → 6ICU 03:23 → 6SEL 02-03 14:42
PROVIDERS: ADMIT Family Medicine; ATTEND Family Medicine
PROC: B2111ZZ Fluoroscopy of Multiple Coronary Arteries using Low Osmolar Contrast (ICD-10-PCS; 2018-02-03)
PROC: 027034Z Dilation of Coronary Artery, One Artery with Drug-eluting Intraluminal Device, Percutaneous Approach (ICD-10-PCS; principal; 2018-02-03 10:00)
PROC: 4A023N7 Measurement of Cardiac Sampling and Pressure, Left Heart, Percutaneous Approach (ICD-10-PCS; 2018-02-03 10:00)
DX: I21.4 Non-ST elevation (NSTEMI) myocardial infarction (principal); Z68.41 Body mass index [BMI] 40.0-44.9, adult; I30.1 Infective pericarditis; N39.0 Urinary tract infection, site not specified; B97.89 Other viral agents as the cause of diseases classified elsewhere; E03.9 Hypothyroidism, unspecified; E66.01 Morbid (severe) obesity due to excess calories; E11.65 Type 2 diabetes mellitus with hyperglycemia; K21.9 Gastro-esophageal reflux disease without esophagitis; I25.10 Atherosclerotic heart disease of native coronary artery without angina pectoris; I11.9 Hypertensive heart disease without heart failure; R00.1 Bradycardia, unspecified; F32.9 Major depressive disorder, single episode, unspecified; R53.81 Other malaise; Z79.899 Other long term (current) drug therapy; Z85.3 Personal history of malignant neoplasm of breast; Z87.891 Personal history of nicotine dependence; Z86.73 Personal history of transient ischemic attack (TIA), and cerebral infarction without residual deficits; Z83.3 Family history of diabetes mellitus; Z82.49 Family history of ischemic heart disease and other diseases of the circulatory system
CPT/HCPCS: 36415; 71275; 74177; 76705; 80048; 80053; 80061; 81003; 81025; 82150; 82550; 82553; 83036; 83690; 83735; 84100; 84484; 85025; 85610; 85652; 85730; 86658; 86747; 87086; 93005; 93306; 93458; 94760; 96361; 96365; 96375; 96376; 99291

== ENCOUNTER → 2018-04-27 | Outpatient (CLI) | payer OTHER ==
--- NOTE | 2018-04-27 10:27 | NM ---
EXAMINATION TYPE: NM hepatobiliary w EF DATE OF EXAM: 04/27/2018 COMPARISON: Correlation ultrasound 02/02/2018 HISTORY: 42-year-old female with bloating TECHNIQUE: After the intravenous administration of 4.65 mCi Tc 99m Mebrofenin hepatobiliary scintigra phy is performed. Immediate images post injection. FINDINGS: There is satisfactory initial accumulation of tracer by the liver. The gallbladder is visualized wit hin 22 minutes. The small bowel activity is noted within 6 minutes. At one hour 8 ounces of oral en sure plus is given to mimic CCK and gallbladder ejection fraction is calculated at 84 percent. IMPRESSION: 1. No scintigraphic evidence for acute/chronic cholecystitis or biliary dyskinesia. 2. Gallbladder ejection fraction is elevated. Findings can be seen in setting of gallbladder hyperkin esis. Please correlate
== END | disposition home or self-care (01) ==
LOC: RADNMMAIN 06:55
PROVIDERS: ATTEND Family Medicine
DX: R94.8 Abnormal results of function studies of other organs and systems (principal)
CPT/HCPCS: 78226; A9537

== ENCOUNTER → 2018-05-20 | Outpatient (CLI) | payer SELFPAY ==
--- NOTE | 2018-05-20 10:17 | FL ---
EXAMINATION TYPE: FL UGI w esophagus DATE OF EXAM: 05/20/2018 COMPARISON: NONE HISTORY: Heartburn TECHNIQUE: A double contrast UGI study is performed. FINDINGS: Manager Division image of the abdomen shows hypertrophic change of the vertebral column. Bowel gas pa ttern nonspecific. There was slight deviation of the esophagus to the right. The esophagus shows normal motility and emptying into the stomach. No evidence of hiatal hernia or s tricture noted. The stomach shows normal distensibility, peristalsis, and mucosal folds. No evidence of any mass or ulcer disease. No significant gastroesophageal reflux was seen during real time performance of this study. The duodenal bulb, sweep, and proximal small bowel loops are unremarkable. There was a small duodenal diverticulum involving the second portion of the duodenum. Approximately 1 minute 19 seconds of fluoroscopy and 51 images submitted. IMPRESSION: 1. No evidence of hiatal hernia or gastroesophageal reflux. 2. There is slight deviation the esophagus to the right and sometimes it can be associated with thyro id disease correlate clinically. 3. Small duodenal diverticulum.
== END | disposition home or self-care (01) ==
LOC: RADFLWHC 09:34
PROVIDERS: ATTEND Student in an Organized Health Care Education/Training Program
DX: K57.10 Diverticulosis of small intestine without perforation or abscess without bleeding (principal); K22.8 Other specified diseases of esophagus
CPT/HCPCS: 74240

== ENCOUNTER 2018-07-17 11:20 | Emergency (ER) | payer OTHER ==
[2018-07-17 11:35] VITALS: TEMP 98.3
--- NOTE | 2018-07-17 11:38 | ED ---
Abdominal Pain HPI - General Chief Complaint: Abdominal Pain Stated Complaint: Abdominal Pain, Diarrhea Time Seen by Provider: 07/17/18 11:35 Source: patient Mode of arrival: ambulatory Limitations: no limitations - History of Present Illness Initial Comments: 42-year-old female past medical history of coronary artery disease, type 2 diabetes and hypertension presenting today for chief complaint of abdominal pain and diarrhea. Patient has history of chronic abdominal pain, she has had recent HIDA scan and evaluation by general surgery in the month of May of this year. Patient states all findings have been negative so far. Patient states this pain has been persistent since January, she states CT was negative this time. Patient states that a week ago Wednesday she began experiencing diarrhea, denies melena or hematochezia. Wednesday she states she began feeling better. She states that during these episodes of diarrhea she have lower abdominal cramping. Patient states that yesterday afternoon abdominal cramping and diarrhea returned, she denies any nausea or vomiting. Patient denies any fever, chills, urgency, dysuria, back pain, hematuria, chest pain, cough, shortness of breath. She denies noticing a pattern with food. Pt denies vaginal bleeding/discharge. LMP 2 weeks ago, normal. Remainder of ROS negative , patient does admit to diarrhea and cramping today. Patient is tolerating by mouth intake at home, however she states it has been decreased. Remainder of ROS negative. Upon arrival patient is well-appearing, vital signs BP elevated, afebrile. - Related Data Home Medications Medication Instructions Recorded Confirmed Atorvastatin [Lipitor] 80 mg PO HS 04/15/18 04/15/18 Losartan [Cozaar] 50 mg PO HS 04/15/18 04/15/18 Metoprolol Succinate (ER) [Toprol 50 mg PO DAILY 04/15/18 04/15/18 XL] Triamcinolone Acetonide [Nasacort] 1 spray EA NOSTRIL DAILY 04/15/18 04/15/18 metFORMIN HCL [metFORMIN HCL ER] 750 mg PO DAILY 04/15/18 04/15/18 Previous Rx's Medication Instructions Recorded Aspirin 81 mg PO DAILY chew 02/04/18 Clopidogrel [Plavix] 75 mg PO DAILY #30 tab 02/04/18 Hydrochlorothiazide [Hydrodiuril] 25 mg PO DAILY #30 tab 02/04/18 Nitroglycerin Sl Tabs [Nitrostat] 0.4 mg SUBLINGUAL Q5M PRN #25 tab 02/04/18 Allergies Allergy/AdvReac Type Severity Reaction Status Date / Time cinnamon Allergy Rash/Hives/Shortness Verified 07/17/18 11:35 of breathe Review of Systems ROS Statement: Those systems with pertinent positive or pertinent negative responses have been documented in the HPI. ROS Other: All systems not noted in ROS Statement are negative. Constitutional: Denies: fever, chills, night sweats ENT: Denies: ear pain, throat pain Respiratory: Denies: cough, dyspnea, wheezes, hemoptysis, stridor Cardiovascular: Denies: chest pain, palpitations, dyspnea on exertion Endocrine: Denies: fatigue Gastrointestinal: Reports: abdominal pain (cramping abdominal pain), diarrhea. Denies: nausea, vomiting, constipation, hematemesis, melena, hematochezia Genitourinary: Denies: urgency, dysuria, frequency, hematuria Musculoskeletal: Denies: back pain Skin: Denies: rash, lesions Neurological: Denies: headache, weakness, numbness, paresthesias, confusion, abnormal gait Past Medical History Past Medical History: Diabetes Mellitus, Hypertension Additional Past Medical History / Comment(s): hx of hypertension and diabetes on medications for 5 years, morbid obesity. History of Any Multi-Drug Resistant Organisms: None Reported Past Surgical History: Heart Catheterization With Stent Additional Past Surgical History / Comment(s): parotid gland mass with lymph nodes Past Anesthesia/Blood Transfusion Reactions: No Reported Reaction Date of Last Stent Placement:: January 2018 Past Psychological History: No Psychological Hx Reported Smoking Status: Former smoker Past Alcohol Use History: None Reported Past Drug Use History: None Reported - Past Family History Father Family Medical History: Diabetes Mellitus, Hypertension Additional Family Medical History / Comment(s): Father is alive at age 62. Mother Additional Family Medical History / Comment(s): Mother is alive at age 58 with no major medical problems. Patient has 2 brothers with no major medical problems. No sisters. Patient is one daughter with no major medical problems. General Exam - General Exam Comments Initial Comments: General: The patient is awake and alert, in no distress, and does not appear acutely ill. Eye: Pupils are equal, round and reactive to light, extra-ocular movements are intact. No nystagmus. There is normal conjunctiva bilaterally. No signs of icterus. Ears, nose, mouth and throat: There are moist mucous membranes and no oral lesions. Neck: The neck is supple, there is no tenderness or JVD. Cardiovascular: There is a regular rate and rhythm. No murmur, rub or gallop is appreciated. Respiratory: Lungs are clear to auscultation, respirations are non-labored, breath sounds are equal. No wheezes, stridor, rales, or rhonchi. Gastrointestinal: No noted diaphoresis, jaundice, pallor, protecting postures or squirming. Symmetrical pigmentation of abdomen without signs of inflammation. Umbilicus mildline, inverted without swelling. No dilated veins. Abdomen contour obese, no noted abdominal distention. No visible masses. No peristalsis, aortic pulsations, or ventral hernia. Bowel sounds audible in all 4 quadrants, unremarkable. No friction rubs or venous hums. No epigastic, hepatic or abdominal bruits. Mild RUQ tenderness to deep palpation. No rigidity or guarding. Negative Mabry sign. Pt denied pain in other areas of abdomen. Liver edge, not palpable. Spleen edge, right and left kidney not palpable. Superior bladder margin non-tender. Special Testing: Negative Valier, Rovsing, McBurney, Henrique, cutaneous hyperesthesia. Iliopsoas and obturator tests negative bilaterally. Negative Heel Jar test/ corby sign. No CVA tenderness. Digital rectal exam deferred. Negative wei turners or cullens sign Musculoskeletal: Normal ROM, no tenderness. Strength 5/5. Sensation intact. Pulses equal bilaterally 2+. Neurological: A&O x 3. CN II-XII intact, There are no obvious motor or sensory deficits. Coordination appears grossly intact. Speech is normal. Skin: Skin is warm and dry and no rashes or lesions are noted. Psychiatric: Cooperative, appropriate mood & affect, normal judgment. Limitations: no limitations Course Vital Signs 07/17/18 07/17/18 11:33 15:30 Temperature 98.3 F Pulse Rate 86 65 Respiratory 20 18 Rate Blood Pressure 156/102 151/85 O2 Sat by Pulse 100 98 Oximetry - Reevaluation(s) Reevaluation #1: Upon discharge, pt denied pain. Abdominal exam remains benign. 07/17/18 Medical Decision Making - Medical Decision Making Laboratory findings unremarkable. Abdominal exam benign. Patient is well- appearing. Pt unable to provide stool sample during ER visit. Pt tolerating PO intake. U/S gallbladder obtained due to RUQ pain on exam, no murphys sign. U/S ( -) No acute findings. Noted heptatomegly, this finding discussed with patient. Repeat abdominal exam remains benign, no significant pain- no signs of peritoneal irritation, Pt appears comfortable. At this time I feel pt is stable for discharge with GI and primary care f/u. Pt is agreeable with plan stating she is ready for discharge. We discussed CT imaging, at this time pt would like to no have imaging performed and f/u as discussed. Case discussed with attending Dr. Tolentino who agreed with impression and plan. EKG obtained given RUQ pain and CAD history; EKG no acute findings and troponin (-), pt denies any ACS symptoms. Parameters discussed at length patient who verbalized understanding. Patient was discharged in stable condition. - Lab Data Result diagrams: 07/17/18 12:05 07/17/18 12:05 Lab Results 07/17/18 07/17/18 07/17/18 Range/Units 12:05 12:05 12:05 WBC 7.4 (3.8-10.6) k/uL RBC 4.71 (3.80-5.40) m/uL Hgb 13.5 (11.4-16.0) gm/dL Hct 39.2 (34.0-46.0) % MCV 83.2 (80.0-100.0) fL MCH 28.6 (25.0-35.0) pg MCHC 34.4 (31.0-37.0) g/dL RDW 12.6 (11.5-15.5) % Plt Count 240 (150-450) k/uL Neutrophils % 70 % Lymphocytes % 20 % Monocytes % 5 % Eosinophils % 2 % Basophils % 1 % Neutrophils # 5.2 (1.3-7.7) k/uL Lymphocytes # 1.5 (1.0-4.8) k/uL Monocytes # 0.4 (0-1.0) k/uL Eosinophils # 0.1 (0-0.7) k/uL Basophils # 0.0 (0-0.2) k/uL Sodium 141 (137-145) mmol/L Potassium 3.4 L (3.5-5.1) mmol/L Chloride 104 (98-107) mmol/L Carbon Dioxide 24 (22-30) mmol/L Anion Gap 13 mmol/L BUN 17 (7-17) mg/dL Creatinine 0.87 (0.52-1.04) mg/dL Est GFR (CKD-EPI)AfAm >90 (>60 ml/min/1.73 sqM) Est GFR (CKD-EPI)NonAf 83 (>60 ml/min/1.73 sqM) Glucose 127 H (74-99) mg/dL Calcium 9.3 (8.4-10.2) mg/dL Total Bilirubin 0.3 (0.2-1.3) mg/dL AST 20 (14-36) U/L ALT 26 (9-52) U/L Alkaline Phosphatase 64 (38-126) U/L Troponin I <0.012 (0.000-0.034) ng/mL Total Protein 7.5 (6.3-8.2) g/dL Albumin 4.1 (3.5-5.0) g/dL Amylase 31 (30-110) U/L Lipase 58 (23-300) U/L Urine Color Urine Appearance (Clear) Urine pH (5.0-8.0) Ur Specific Shelby (1.001-1.035) Urine Protein (Negative) Urine Glucose (UA) (Negative) Urine Ketones (Negative) Urine Blood (Negative) Urine Nitrite (Negative) Urine Bilirubin (Negative) Urine Urobilinogen (<2.0) mg/dL Ur Leukocyte Esterase (Negative) Urine RBC (0-5) /hpf Urine WBC (0-5) /hpf Urine Mucus (None) /hpf 07/17/18 Range/Units 12:05 WBC (3.8-10.6) k/uL RBC (3.80-5.40) m/uL Hgb (11.4-16.0) gm/dL Hct (34.0-46.0) % MCV (80.0-100.0) fL MCH (25.0-35.0) pg MCHC (31.0-37.0) g/dL RDW (11.5-15.5) % Plt Count (150-450) k/uL Neutrophils % % Lymphocytes % % Monocytes % % Eosinophils % % Basophils % % Neutrophils # (1.3-7.7) k/uL Lymphocytes # (1.0-4.8) k/uL Monocytes # (0-1.0) k/uL Eosinophils # (0-0.7) k/uL Basophils # (0-0.2) k/uL Sodium (137-145) mmol/L Potassium (3.5-5.1) mmol/L Chloride (98-107) mmol/L Carbon Dioxide (22-30) mmol/L Anion Gap mmol/L BUN (7-17) mg/dL Creatinine (0.52-1.04) mg/dL Est GFR (CKD-EPI)AfAm (>60 ml/min/1.73 sqM) Est GFR (CKD-EPI)NonAf (>60 ml/min/1.73 sqM) Glucose (74-99) mg/dL Calcium (8.4-10.2) mg/dL Total Bilirubin (0.2-1.3) mg/dL AST (14-36) U/L ALT (9-52) U/L Alkaline Phosphatase (38-126) U/L Troponin I (0.000-0.034) ng/mL Total Protein (6.3-8.2) g/dL Albumin (3.5-5.0) g/dL Amylase (30-110) U/L Lipase (23-300) U/L Urine Color Yellow Urine Appearance Clear (Clear) Urine pH 5.5 (5.0-8.0) Ur Specific Shelby 1.022 (1.001-1.035) Urine Protein Trace H (Negative) Urine Glucose (UA) Negative (Negative) Urine Ketones Negative (Negative) Urine Blood Trace H (Negative) Urine Nitrite Negative (Negative) Urine Bilirubin Negative (Negative) Urine Urobilinogen <2.0 (<2.0) mg/dL Ur Leukocyte Esterase Negative (Negative) Urine RBC 1 (0-5) /hpf Urine WBC <1 (0-5) /hpf Urine Mucus Rare H (None) /hpf - EKG Data EKG Comments: A 12-lead EKG was performed and shows the following: Rate is 74bpm, and rhythm is normal sinus. There are normal QRS complexes and normal R-wave progression. ST segments have no elevation or depression, and NV segments appear normal. Compared to that of most recent EKG, no acute findings. No ST elevation/ depression. Disposition Clinical Impression: Abdominal pain Disposition: HOME SELF-CARE Condition: Good Instructions: Abdominal Pain (ED) Additional Instructions: Please use medication as discussed. Please follow-up with family doctor in next 1-2 days, please follow-up with gastroenterology in the next 2-3 days. Please return to emergency room if the symptoms increase or worsen or for any other concerns, as discussed. Is patient prescribed a controlled substance at d/c from ED?: No Referrals: Madelyn Corrigan MD [Primary Care Provider] - 1-2 days Shankar Barfield MD [STAFF PHYSICIAN] - 1-2 days Time of Disposition: 14:09
[2018-07-17] MEDS ORDERED: SODIUM CHLORIDE 0.9% 1,000 ML IV ONE (12:01)
[2018-07-17 12:41] LABS: Basophils % (A) 1 %; Eosinophils # (A) 0.1 k/uL (0-0.7); Eosinophils % (A) 2 %; HCT 39.2 % (34.0-46.0); HGB 13.5 gm/dL (11.4-16.0); Lymphocytes # (A) 1.5 k/uL (1.0-4.8); Lymphocytes % (A) 20 %; MCH 28.6 pg (25.0-35.0); MCHC 34.4 g/dL (31.0-37.0); MCV 83.2 fL (80.0-100.0); Mean Platelet Volume 7.2; Monocytes # (A) 0.4 k/uL (0-1.0); Monocytes % (A) 5 %; Neutrophils # (A) 5.2 k/uL (1.3-7.7); Neutrophils % (A) 70 %; Platelet Count 240 k/uL (150-450); RBC 4.71 m/uL (3.80-5.40); RDW 12.6 % (11.5-15.5); WBC 7.4 k/uL (3.8-10.6)
[2018-07-17 12:52] LABS: ALT 26 U/L (9-52); AST 20 U/L (14-36); Albumin 4.1 g/dL (3.5-5.0); Alkaline Phosphatase 64 U/L (38-126); Amylase 31 U/L (30-110); Anion Gap 13 mmol/L; Blood Urea Nitrogen 17 mg/dL (7-17); Calcium 9.3 mg/dL (8.4-10.2); Carbon Dioxide 24 mmol/L (22-30); Chloride 104 mmol/L (98-107); Glucose 127 mg/dL (74-99); Lipase 58 U/L (23-300); Potassium 3.4 mmol/L (3.5-5.1); Sodium 141 mmol/L (137-145); Total Bilirubin 0.3 mg/dL (0.2-1.3); Total Protein 7.5 g/dL (6.3-8.2)
[2018-07-17 13:04] LABS: Appearance,Urine Clear (Clear); Bilirubin,Urine Negative (Negative); Blood,Urine Trace (Negative); Color,Urine Yellow; Glucose,Urine (UA) Negative (Negative); Ketones,Urine Negative (Negative); Leukocyte Esterase,Urine Negative (Negative); Mucus,Urine Rare /hpf; Nitrite,Urine Negative (Negative); PH, Urine 5.5 (5.0-8.0); Protein,Urine Trace (Negative); RBC,Urine 1 /hpf (0-5); Specific Gravity,Urine 1.022 (1.001-1.035); Urobilinogen,Urine <2.0 mg/dL (<2.0); WBC,Urine <1 /hpf (0-5)
--- NOTE | 2018-07-17 13:50 | US ---
EXAMINATION TYPE: US abdomen limited DATE OF EXAM: 07/17/2018 COMPARISON: CT, NM CLINICAL HISTORY: RUQ pain and diarrhea per EC patient EXAM MEASUREMENTS: Liver Length: 18.9 cm Gallbladder Wall: 0.1 cm CBD: 0.2 cm Right Kidney: 11.x 7.9 x 6.3 cm large body habitus Pancreas: hyperechoic, no masses seen Liver: no masses seen; enlarged as is greater than 18.0cm Gallbladder: wnl Evidence for sonographic Mabry's sign: no CBD: wnl Right Kidney: No hydronephrosis or masses seen IMPRESSION: 1. Hepatomegaly
--- NOTE | 2018-07-17 14:37 | XR ---
EXAMINATION TYPE: XR chest 2V DATE OF EXAM: 07/17/2018 COMPARISON: 04/15/2018 HISTORY: Chest pain TECHNIQUE: Frontal and lateral views of the chest are obtained. FINDINGS: Heart and mediastinum are normal. Lungs are clear. Diaphragm is normal. Bony thorax is int act. Pulmonary vascularity is normal. IMPRESSION: Normal chest. No change.
[2018-07-17 15:35] VITALS: BP 151/85; PULSE 65; RESP 18
== END 2018-07-17 15:30 | disposition home or self-care (01) ==
LOC: EC 11:20
DX: R10.30 Lower abdominal pain, unspecified (principal); R19.7 Diarrhea, unspecified; R10.11 Right upper quadrant pain; R16.0 Hepatomegaly, not elsewhere classified; I10 Essential (primary) hypertension; I25.10 Atherosclerotic heart disease of native coronary artery without angina pectoris; Z87.891 Personal history of nicotine dependence; Z91.018 Allergy to other foods; Z79.84 Long term (current) use of oral hypoglycemic drugs; Z79.899 Other long term (current) drug therapy; Z95.818 Presence of other cardiac implants and grafts
CPT/HCPCS: 36415; 71046; 76705; 80053; 81001; 82150; 83690; 84484; 85025; 96360; 99284

== ENCOUNTER 2018-08-11 10:04 | Day surgery (SDC) | payer OTHER ==
[2018-08-04 12:57] VITALS: BMI 38.5
[~2018-08-11 10:04] MED LIST: HYDROmorphone 0.5 MG/0.5 ML SYRINGE IVP PRN; LACTATED RINGERS 1,000 ML IV SCH; LIDOCAINE 1% 20 ML VIAL (10MG/ML) FOR IV START INTRADERMA PRN
[2018-08-11 10:35] VITALS: RESP 16; TEMP 97.6
[2018-08-11 10:43] LABS: Glucose,Whole Blood 93 mg/dL (75-99)
[2018-08-11] MEDS ORDERED: PROPOFOL 10 MG/ML 20 ML VIAL IV ONE (10:56)
[2018-08-11] MEDS ORDERED: fentaNYL (PF) 50 MCG/ML 2 ML AMP ONE (10:56)
[2018-08-11] MEDS ORDERED: LIDOCAINE 1% INJ 10MG/ML (20 ML MDV) ONE (10:56)
--- NOTE | 2018-08-11 11:22 | P.PCN ---
Date of Procedure: 08/11/18 Description of Procedure: BRIEF HISTORY: Patient is a 42-year-old, pleasant, female patient with a medical history significant for diabetes mellitus, coronary artery disease status post stent placement and dyslipidemia who presents for outpatient EGD and evaluation of reflux, abdominal pain, chest pain and symptoms of bloating and abdominal distention. The patient was recently seen in the gastroenterology office where she was started on Zantac 150 mg twice daily. PROCEDURE PERFORMED: Esophagogastroduodenoscopy with cold biopsy. PREOPERATIVE DIAGNOSIS: Abdominal pain, reflux, chest pain, abdominal bloating and distension. ESTIMATED BLOOD LOSS: Minimal. IV sedation per anesthesia. PROCEDURE: After informed consent was obtained, the patient was brought into the endoscopy unit. IV sedation was administered by Anesthesia under continuous monitoring. Initially the Olympus GIF-190 video endoscope was inserted into the mouth. Esophagus intubated without any difficulty. It was gradually advanced into the stomach and duodenum and carefully examined. The bulb and the second part of the duodenum appeared normal, with biopsies taken to rule out celiac sprue. The scope at this time was withdrawn to the stomach, adequately insufflated with air, and upon careful examination, mucosa of the antrum, body, cardia and the fundus appeared normal. There was scattered erythema and a few small superficial erosions in the antrum and body, with biopsies taken. The scope was then withdrawn into the esophagus. The GE junction was located at 39 cm from the incisors. The esophagus appeared normal. There were no erosions or ulcerations seen and the patient tolerated the procedure well. IMPRESSION: 1. Mild gastritis, biopsied. 2. Duodenal biopsies, rule out celiac sprue. RECOMMENDATIONS: The findings of this examination were discussed with the patient and her daughter. Continue Zantac 150 mg twice daily. Follow up with gastroenterology in 2-3 weeks. Await results of biopsies. Patient was given a work note for [employer].
[2018-08-11 11:45] VITALS: BP 141/82; PULSE 72
== END 2018-08-11 11:56 | disposition home or self-care (01) ==
LOC: ORWHC2ENDO 10:04
PROVIDERS: ATTEND Internal Medicine
DX: K29.50 Unspecified chronic gastritis without bleeding (principal); K31.9 Disease of stomach and duodenum, unspecified; K21.9 Gastro-esophageal reflux disease without esophagitis; E11.9 Type 2 diabetes mellitus without complications; I25.10 Atherosclerotic heart disease of native coronary artery without angina pectoris; E78.5 Hyperlipidemia, unspecified; E66.01 Morbid (severe) obesity due to excess calories; Z68.38 Body mass index [BMI] 38.0-38.9, adult; Z95.5 Presence of coronary angioplasty implant and graft; Z79.84 Long term (current) use of oral hypoglycemic drugs; Z79.02 Long term (current) use of antithrombotics/antiplatelets; Z79.82 Long term (current) use of aspirin; Z79.899 Other long term (current) drug therapy; Z91.018 Allergy to other foods; Z87.891 Personal history of nicotine dependence
CPT/HCPCS: 81025; 88305; 43239; J2001; J3010; J2704

== ENCOUNTER 2018-08-20 23:12 | Emergency (ER) | payer OTHER ==
[2018-08-20 23:20] VITALS: TEMP 98.2
[2018-08-20] MEDS ORDERED: SUCRALFATE 1 GM TAB PO STA (23:35)
[2018-08-20] MEDS ORDERED: MAG HYDROX/AL HYDROX/SIMETH 30 ML CUP PO STA (23:35)
[2018-08-20] MEDS ORDERED: LIDOCAINE 1% (PF) 10MG/ML VIAL MISCELLANE STA (23:35)
[2018-08-20] MEDS ORDERED: LIDOCAINE VISCOUS 300 MG/15 ML CUP MUCOUS MEM ONE (23:45)
--- NOTE | 2018-08-20 23:48 | ED ---
Chest Pain HPI <Joy Pham - Last Filed: 08/21/18 03:33> - General Source: patient, family Mode of arrival: ambulatory Limitations: no limitations <Max Linares - Last Filed: 08/21/18 21:45> - General Chief Complaint: Chest Pain Stated Complaint: Chest Pain Time Seen by Provider: 08/20/18 23:21 - History of Present Illness Initial Comments: Patient is a 42-year-old female presenting for chest discomfort. Patient states that she has an extensive history of chest pain and this is been going on for 6 months. For the last hour, though the pain is more sharp and located inside of her chest. It woke her from sleep and it does not radiate. She also admits to arm and hand numbness that has been going on. She states that she has had an extensive GI workup with HIDA and endoscopy. The results of the HIDA is not back but she states that she was told that she had extensive gastritis. (Max Linares) - Related Data Home Medications Medication Instructions Recorded Confirmed Atorvastatin [Lipitor] 80 mg PO HS 04/15/18 08/20/18 Losartan [Cozaar] 50 mg PO HS 04/15/18 08/20/18 Metoprolol Succinate (ER) [Toprol 50 mg PO DAILY 04/15/18 08/20/18 XL] Triamcinolone Acetonide [Nasacort] 1 spray EA NOSTRIL DAILY 04/15/18 08/20/18 metFORMIN HCL [metFORMIN HCL ER] 750 mg PO DAILY 04/15/18 08/20/18 Previous Rx's Medication Instructions Recorded Aspirin 81 mg PO DAILY chew 02/04/18 Clopidogrel [Plavix] 75 mg PO DAILY #30 tab 02/04/18 Hydrochlorothiazide [Hydrodiuril] 25 mg PO DAILY #30 tab 02/04/18 Nitroglycerin Sl Tabs [Nitrostat] 0.4 mg SUBLINGUAL Q5M PRN #25 tab 02/04/18 Sucralfate [Carafate] 1 gm PO ACHS #400 ml 08/21/18 Allergies Allergy/AdvReac Type Severity Reaction Status Date / Time cinnamon Allergy Rash/Hives/Shortness Verified 08/20/18 23:39 of breathe Review of Systems ROS Other: All systems not noted in ROS Statement are negative. <Joy Pham Jose - Last Filed: 08/21/18 03:33> ROS Other: All systems not noted in ROS Statement are negative. <Max Linares - Last Filed: 08/21/18 21:45> ROS Statement: Those systems with pertinent positive or pertinent negative responses have been documented in the HPI. Constitutional: Negative for chills, fatigue and fever. HENT: Negative for congestion. Respiratory: Negative for chest tightness, shortness of breath and wheezing. Negative for cough Cardiovascular: Positive for chest pain and negative palpitations. Gastrointestinal: Negative for abdominal pain. Negative for abdominal distention , diarrhea, nausea and vomiting. Genitourinary: Negative for dysuria. Musculoskeletal: Negative for back pain, neck pain and neck stiffness. Skin: Negative for color change. Neurological: Negative for dizziness, speech difficulty, weakness and light- headedness. Positive for bilateral hand numbness and tingling. Psychiatric/Behavioral: Negative for agitation and confusion. Negative for anxiety (Max Linares) EKG Findings - EKG Comments: EKG Findings:: EKG shows normal sinus rhythm of a rate of 90 bpm, OK interval 170, QRS 88, QTC 435. No significant ST depressions or elevations. <Max Linares - Last Filed: 08/21/18 21:45> Past Medical History Past Medical History: Diabetes Mellitus, GERD/Reflux, Hypertension Additional Past Medical History / Comment(s): hx of hypertension and diabetes on medications for 5 years, morbid obesity. History of Any Multi-Drug Resistant Organisms: None Reported Past Surgical History: Heart Catheterization, Heart Catheterization With Stent Additional Past Surgical History / Comment(s): parotid gland mass with lymph nodes Past Anesthesia/Blood Transfusion Reactions: No Reported Reaction Date of Last Stent Placement:: January 2018 Past Psychological History: No Psychological Hx Reported Smoking Status: Former smoker Past Alcohol Use History: None Reported Past Drug Use History: None Reported - Past Family History Father Family Medical History: Diabetes Mellitus, Hypertension Additional Family Medical History / Comment(s): Father is alive at age 62. Mother Family Medical History: Deep Vein Thrombosis (DVT) Additional Family Medical History / Comment(s): Mother is alive at age 58 with no major medical problems. Patient has 2 brothers with no major medical problems. No sisters. Patient is one daughter with no major medical problems. <Max Linares - Last Filed: 08/21/18 21:45> General Exam <Joy Pham - Last Filed: 08/21/18 03:33> Limitations: no limitations <Max Linares - Last Filed: 08/21/18 21:45> - General Exam Comments Initial Comments: Constitutional: Pt is oriented to person, place, and time. Pt appears well- developed and well-nourished. No distress. HENT: Head: Normocephalic and atraumatic. Eyes: EOM are normal. Neck: Normal range of motion. Neck supple. Cardiovascular: Normal rate, regular rhythm, S1 normal, S2 normal and normal heart sounds. Exam reveals no gallop and no friction rub. No murmur heard. Pulmonary/Chest: Effort normal and breath sounds normal. No tachypnea and no bradypnea. No respiratory distress. No wheezes or rales noted. Abdominal: Soft. Bowel sounds are normal. Pt exhibits no shifting dullness, no distension, no pulsatile liver, no fluid wave, no abdominal bruit and no ascites. There is no tenderness. There is no rigidity, no rebound, no guarding, no tenderness at McBurney's point and negative Mabry's sign. Musculoskeletal: Normal range of motion. Neurological: Pt is alert and oriented to person, place, and time. No cranial nerve deficit. Skin: Skin is warm and dry. No rash noted. Pt is not diaphoretic. No erythema. No pallor. Psychiatric: Pt has a normal mood and affect. Pt behavior is normal. Thought content normal. (Max Linares) Vital Signs 08/20/18 08/21/18 08/21/18 23:16 00:30 01:00 Temperature 98.2 F Pulse Rate 94 70 78 Respiratory 20 21 15 Rate Blood Pressure 181/83 144/89 122/84 O2 Sat by Pulse 100 98 98 Oximetry 08/21/18 08/21/18 08/21/18 01:30 02:00 02:30 Temperature Pulse Rate 71 86 71 Respiratory 15 12 19 Rate Blood Pressure 145/86 130/77 130/77 O2 Sat by Pulse 97 96 99 Oximetry 01/06/19 01/06/19 01/06/19 03:00 03:30 04:00 Temperature Pulse Rate 74 69 68 Respiratory 16 16 16 Rate Blood Pressure 148/92 143/87 138/78 O2 Sat by Pulse 98 100 99 Oximetry Chest Pain [facility] <Joy Pham - Last Filed: 08/21/18 03:33> <Max Linares - Last Filed: 08/21/18 21:45> - [facility] Patient care was signed out to me by Dr. Box as. Patient presented with epigastric abdominal and chest pain. Labs and imaging initially were unremarkable. Repeat troponin was pending at the time of sign out. Repeat troponin resulted and was again negative. Patient has been resting comfortably for the past couple of hours at this time I do feel the patient stable for discharge home. All questions pertaining care were answered to the best of my ability return parameters were discussed and the patient was discharged home in stable condition. (Joy Pham) Laboratory studies showed that there was no significant leukocytosis, electrolyte derangements, and from a cardiac standpoint, initial troponin was negative and urine was also negative. EKG had no significant abnormalities found and patient was given GI cocktail with Carafate and stated that the symptoms completely resolved. It was explained that patients cardiac etiology could not be completely excluded but if second troponin was negative, she could be safely discharged as there is been extensive outpatient workup ruling out ACS. Additionally, d-dimer was not performed as patient was perked negative. Case is being signed out to night physician, Dr. Pham who will follow-up on second troponin and discharge patient if this is negative. (Max Linares) Disposition Is patient prescribed a controlled substance at d/c from ED?: No <Joy Pham - Last Filed: 08/21/18 03:33> <Max Linares - Last Filed: 08/21/18 21:45> Clinical Impression: Chest pain Disposition: HOME SELF-CARE Condition: Good Prescriptions: Sucralfate [Carafate] 1 gm PO ACHS #400 ml Referrals: Madelyn Corrigan MD [Primary Care Provider] - 1-2 days Berezy Galvez MD [STAFF PHYSICIAN] - 1-2 days
[2018-08-20 23:52] LABS: Basophils # (A) 0.1 k/uL (0-0.2); Basophils % (A) 1 %; Eosinophils # (A) 0.2 k/uL (0-0.7); Eosinophils % (A) 3 %; HCT 38.8 % (34.0-46.0); HGB 13.2 gm/dL (11.4-16.0); Lymphocytes # (A) 1.1 k/uL (1.0-4.8); Lymphocytes % (A) 15 %; MCH 28.9 pg (25.0-35.0); MCHC 34.1 g/dL (31.0-37.0); MCV 84.8 fL (80.0-100.0); Mean Platelet Volume 7.1; Monocytes # (A) 0.3 k/uL (0-1.0); Monocytes % (A) 5 %; Neutrophils # (A) 5.6 k/uL (1.3-7.7); Neutrophils % (A) 77 %; Platelet Count 225 k/uL (150-450); RBC 4.58 m/uL (3.80-5.40); WBC 7.3 k/uL (3.8-10.6)
[2018-08-21 00:01] LABS: ALT 28 U/L (9-52); AST 21 U/L (14-36); Albumin 4.3 g/dL (3.5-5.0); Alkaline Phosphatase 64 U/L (38-126); Anion Gap 11 mmol/L; Blood Urea Nitrogen 22 mg/dL (7-17); Calcium 9.5 mg/dL (8.4-10.2); Carbon Dioxide 23 mmol/L (22-30); Chloride 104 mmol/L (98-107); Glucose 231 mg/dL (74-99); Lipase 96 U/L (23-300); Potassium 3.8 mmol/L (3.5-5.1); Sodium 138 mmol/L (137-145); Total Bilirubin 0.6 mg/dL (0.2-1.3); Total Protein 7.8 g/dL (6.3-8.2)
[2018-08-21 00:02] LABS: INR 0.9 (<1.2); Partial Thromboplastin Time 23.9 sec (22.0-30.0); Prothrombin Time 9.6 sec (9.0-12.0)
--- NOTE | 2018-08-21 00:09 | XR ---
EXAMINATION TYPE: XR chest 2V DATE OF EXAM: 08/20/2018 COMPARISON: July 17, 2018 HISTORY: Hypertension. Chest pain TECHNIQUE: Frontal and lateral views of the chest are obtained. FINDINGS: Heart and mediastinum are normal. Lungs are clear. Diaphragm is normal. Bony thorax appear s normal. IMPRESSION: Normal chest. No change.
[2018-08-21 04:25] VITALS: BP 138/78; PULSE 68; RESP 16
== END 2018-08-21 04:26 | disposition home or self-care (01) ==
LOC: EC 23:12
DX: R07.89 Other chest pain (principal); R20.0 Anesthesia of skin; R10.13 Epigastric pain; E11.9 Type 2 diabetes mellitus without complications; I10 Essential (primary) hypertension; Z79.84 Long term (current) use of oral hypoglycemic drugs; Z79.899 Other long term (current) drug therapy; Z91.018 Allergy to other foods; Z95.5 Presence of coronary angioplasty implant and graft; Z87.891 Personal history of nicotine dependence
CPT/HCPCS: 36415; 71046; 80053; 81025; 83690; 83735; 84484; 85025; 85610; 85730; 93005; 99285

== ENCOUNTER 2018-09-24 17:43 | Emergency (ER) | payer OTHER ==
[2018-09-24 17:55] VITALS: RESP 18
[2018-09-24] MEDS ORDERED: SODIUM CHLORIDE 0.9% 1,000 ML IV STA ×2 (18:23)
[2018-09-24] MEDS ORDERED: MAG HYDROX/AL HYDROX/SIMETH 30 ML, HYOSCYAMINE ELIXIR 10 ML, CIMETIDINE HCL 300 MG, LID... PO STA ×4 (18:24)
[2018-09-24] MEDS ORDERED: PANTOPRAZOLE 40 MG/10 ML VIAL IVP STA (18:27)
[2018-09-24 19:11] LABS: Basophils % (A) 1 %; Eosinophils # (A) 0.1 k/uL (0-0.7); Eosinophils % (A) 1 %; HCT 39.7 % (34.0-46.0); HGB 13.2 gm/dL (11.4-16.0); Lymphocytes # (A) 1.2 k/uL (1.0-4.8); Lymphocytes % (A) 18 %; MCH 28.3 pg (25.0-35.0); MCHC 33.3 g/dL (31.0-37.0); Mean Platelet Volume 7.4; Monocytes # (A) 0.4 k/uL (0-1.0); Monocytes % (A) 5 %; Neutrophils % (A) 73 %; Platelet Count 206 k/uL (150-450); RBC 4.68 m/uL (3.80-5.40); RDW 12.8 % (11.5-15.5); WBC 6.8 k/uL (3.8-10.6)
--- NOTE | 2018-09-24 19:15 | XR ---
EXAMINATION TYPE: XR chest 2V DATE OF EXAM: 09/24/2018 COMPARISON: 08/21/2018 HISTORY: Intermittent chest pain and pressure TECHNIQUE: Frontal and lateral views of the chest are obtained. FINDINGS: There is no focal air space opacity, pleural effusion, or pneumothorax seen. The cardiac silhouette size is within normal limits. The osseous structures are intact. Minimal degenerative ch anges of the thoracic spine are noted. IMPRESSION: No acute cardiopulmonary process.
--- NOTE | 2018-09-24 19:17 | ED ---
Chest Pain HPI - General Chief Complaint: Chest Pain Stated Complaint: CHEST PAIN Time Seen by Provider: 09/24/18 17:56 Source: patient, RN notes reviewed, old records reviewed Mode of arrival: ambulatory Limitations: no limitations - History of Present Illness Initial Comments: Is a 42-year-old female presents today with evaluation for epigastric abdominal pain and chest pain started earlier today. She went to [facility]. Was sent here for further evaluation. Patient's EKG there was unremarkable. She states she's been dealing with epigastric abdominal pain and GERD for many months. Patient states that she also has had history of cardiac cath which was positive for LAD dysfunction in January of last year. Patient states that her pain feels similar to acid reflux. - Related Data Home Medications Medication Instructions Recorded Confirmed Atorvastatin [Lipitor] 80 mg PO HS 04/15/18 08/20/18 Losartan [Cozaar] 50 mg PO HS 04/15/18 08/20/18 Metoprolol Succinate (ER) [Toprol 50 mg PO DAILY 04/15/18 08/20/18 XL] Triamcinolone Acetonide [Nasacort] 1 spray EA NOSTRIL DAILY 04/15/18 08/20/18 metFORMIN HCL [metFORMIN HCL ER] 750 mg PO DAILY 04/15/18 08/20/18 Previous Rx's Medication Instructions Recorded Aspirin 81 mg PO DAILY chew 02/04/18 Clopidogrel [Plavix] 75 mg PO DAILY #30 tab 02/04/18 Hydrochlorothiazide [Hydrodiuril] 25 mg PO DAILY #30 tab 02/04/18 Nitroglycerin Sl Tabs [Nitrostat] 0.4 mg SUBLINGUAL Q5M PRN #25 tab 02/04/18 Sucralfate [Carafate] 1 gm PO ACHS #400 ml 08/21/18 Allergies Allergy/AdvReac Type Severity Reaction Status Date / Time cinnamon Allergy Rash/Hives/Shortness Verified 08/20/18 23:39 of breathe Review of Systems ROS Statement: Those systems with pertinent positive or pertinent negative responses have been documented in the HPI. ROS Other: All systems not noted in ROS Statement are negative. Past Medical History Past Medical History: Diabetes Mellitus, GERD/Reflux, Hypertension Additional Past Medical History / Comment(s): hx of hypertension and diabetes on medications for 5 years, morbid obesity. History of Any Multi-Drug Resistant Organisms: None Reported Past Surgical History: Heart Catheterization, Heart Catheterization With Stent Additional Past Surgical History / Comment(s): parotid gland mass with lymph nodes Past Anesthesia/Blood Transfusion Reactions: No Reported Reaction Date of Last Stent Placement:: January 2018 Past Psychological History: No Psychological Hx Reported Smoking Status: Former smoker Past Alcohol Use History: None Reported Past Drug Use History: None Reported - Past Family History Father Family Medical History: Diabetes Mellitus, Hypertension Additional Family Medical History / Comment(s): Father is alive at age 62. Mother Family Medical History: Deep Vein Thrombosis (DVT) Additional Family Medical History / Comment(s): Mother is alive at age 58 with no major medical problems. Patient has 2 brothers with no major medical problems. No sisters. Patient is one daughter with no major medical problems. General Exam - General Exam Comments Initial Comments: Alert and oriented 42-year-old female. Limitations: no limitations General appearance: alert, in no apparent distress Head exam: Present: atraumatic Eye exam: Present: normal appearance, PERRL, EOMI. Absent: scleral icterus, conjunctival injection, periorbital swelling ENT exam: Present: normal exam, mucous membranes moist Neck exam: Present: normal inspection. Absent: tenderness, meningismus, lymphadenopathy Respiratory exam: Present: normal lung sounds bilaterally. Absent: respiratory distress, wheezes, rales, rhonchi, stridor Cardiovascular Exam: Present: regular rate, normal rhythm, normal heart sounds. Absent: systolic murmur, diastolic murmur, rubs, gallop, clicks GI/Abdominal exam: Present: soft, tenderness (Epigastric tenderness), normal bowel sounds. Absent: distended, guarding, rebound, rigid Extremities exam: Present: normal inspection, full ROM, normal capillary refill. Absent: tenderness, pedal edema, joint swelling, calf tenderness Back exam: Present: normal inspection Neurological exam: Present: alert, oriented X3, CN II-XII intact Psychiatric exam: Present: normal affect, normal mood Skin exam: Present: warm, dry, intact, normal color. Absent: rash Course Vital Signs 09/24/18 09/24/18 09/24/18 17:50 19:14 20:24 Temperature 98.4 F 97.2 F L Pulse Rate 66 70 68 Respiratory 18 18 18 Rate Blood Pressure 140/85 135/80 142/86 O2 Sat by Pulse 100 100 98 Oximetry Chest Pain MDM - MDM 42-year-old female presents today for evaluation and for epigastric pain and concern for possible chest discomfort chronic related pain. Symptoms started earlier today in the morning. She went to [facility] for evaluation was sent here. Her EKG is unremarkable. Troponin testing negative, appeared she had a clear cardiac cath in April. Patient is somewhat better after receiving Protonix and nausea medication. I did discuss with the Patient that her symptoms are seem unlikely cardiac related. I did offer admission for repeat troponins or following up with her myalgias and primary care doctor. Patient states she preferred to be discharged home. At this time Patient will have close follow-up and advised on dietary restrictions return parameters. Disposition Clinical Impression: GERD (gastroesophageal reflux disease), Chest pain Disposition: HOME SELF-CARE Condition: Good Instructions (If sedation given, give patient instructions): Chest Pain (ED) Additional Instructions: Patient is advised to follow-up with cardiology and primary care physician. Return to the emergency department if any alarming signs or symptoms occur. Is patient prescribed a controlled substance at d/c from ED?: No Referrals: Madelyn Corrigan MD [Primary Care Provider] - 1-2 days Time of Disposition: 20:13
[2018-09-24 19:21] LABS: Creatine Kinase 101 U/L (30-135)
[2018-09-24 19:24] LABS: Albumin 4.1 g/dL (3.5-5.0); Calcium 9.5 mg/dL (8.4-10.2); INR 0.9 (<1.2); Magnesium 2.2 mg/dL (1.6-2.3); Partial Thromboplastin Time 24.7 sec (22.0-30.0); Total Bilirubin 0.7 mg/dL (0.2-1.3); Total Protein 7.3 g/dL (6.3-8.2)
[2018-09-24 19:34] LABS: Creatine Kinase MB 0.9 ng/mL (0.0-2.4); Troponin I <0.012 ng/mL (0.000-0.034)
[2018-09-24 20:25] VITALS: BP 142/86; PULSE 68; TEMP 97.2
[2018-09-24] MEDS ORDERED: PANTOPRAZOLE 40 MG/10 ML VIAL IVP SCH (21:00)
== END 2018-09-24 20:24 | disposition home or self-care (01) ==
LOC: EC 17:43
DX: K21.9 Gastro-esophageal reflux disease without esophagitis (principal); E11.9 Type 2 diabetes mellitus without complications; I10 Essential (primary) hypertension; E66.01 Morbid (severe) obesity due to excess calories; Z68.39 Body mass index [BMI] 39.0-39.9, adult; Z95.818 Presence of other cardiac implants and grafts; Z95.5 Presence of coronary angioplasty implant and graft; Z87.891 Personal history of nicotine dependence; Z79.84 Long term (current) use of oral hypoglycemic drugs; Z79.899 Other long term (current) drug therapy; Z91.018 Allergy to other foods
CPT/HCPCS: 36415; 80053; 82550; 82553; 83735; 84484; 85025; 85610; 85730; 71046; 99285; 96374; 96361; C9113

== ENCOUNTER 2018-09-26 11:45 | Emergency (ER) | payer OTHER ==
[2018-09-26 11:58] VITALS: RESP 18; TEMP 97.5
[2018-09-26 12:44] LABS: ALT 40 U/L (9-52); AST 25 U/L (14-36); Albumin 4.6 g/dL (3.5-5.0); Alkaline Phosphatase 81 U/L (38-126); Amylase <30 U/L (30-110); Anion Gap 8 mmol/L; Blood Urea Nitrogen 18 mg/dL (7-17); Calcium 9.8 mg/dL (8.4-10.2); Carbon Dioxide 27 mmol/L (22-30); Chloride 104 mmol/L (98-107); Glucose 145 mg/dL (74-99); Lipase 93 U/L (23-300); Potassium 3.7 mmol/L (3.5-5.1); Sodium 139 mmol/L (137-145); Total Bilirubin 0.6 mg/dL (0.2-1.3); Total Protein 8.2 g/dL (6.3-8.2)
[2018-09-26 12:45] LABS: Basophils # (A) 0.1 k/uL (0-0.2); Basophils % (A) 1 %; Eosinophils # (A) 0.1 k/uL (0-0.7); Eosinophils % (A) 1 %; HCT 40.2 % (34.0-46.0); HGB 13.7 gm/dL (11.4-16.0); Lymphocytes # (A) 1.6 k/uL (1.0-4.8); Lymphocytes % (A) 19 %; MCH 28.8 pg (25.0-35.0); MCV 84.6 fL (80.0-100.0); Mean Platelet Volume 7.1; Monocytes # (A) 0.4 k/uL (0-1.0); Monocytes % (A) 5 %; Neutrophils % (A) 73 %; Platelet Count 220 k/uL (150-450); RBC 4.75 m/uL (3.80-5.40); RDW 12.9 % (11.5-15.5); WBC 8.3 k/uL (3.8-10.6)
--- NOTE | 2018-09-26 14:09 | US ---
EXAMINATION TYPE: US abdomen limited DATE OF EXAM: 09/26/2018 COMPARISON: US, AJ CLINICAL HISTORY: GB. Chronic RUQ pain, last ate 0200; patient stated has acid reflux EXAM MEASUREMENTS: Liver Length: 18.4 cm Gallbladder Wall: 0.2 cm CBD: 0.3 cm Right Kidney: 12.1 x 6.3 x 4.6 cm Pancreas: hyperechoic and tail is gassed out Liver: enlarged Gallbladder: wnl Evidence for sonographic Mabry's sign: yes CBD: wnl Right Kidney: No hydronephrosis or masses seen IMPRESSION: 1. Visualized abdomen ultrasound is unremarkable.
[2018-09-26] MEDS ORDERED: MORPHINE SULFATE 4 MG/ML SYRINGE IVP STA ×2 (14:41→15:35)
[2018-09-26] MEDS ORDERED: ONDANSETRON 4 MG/2 ML VIAL IVP STA (14:42)
[2018-09-26 14:51] VITALS: BP 146/96; PULSE 68
[2018-09-26] MEDS ORDERED: traMADol 50 MG STARTER PACK 3 TAB BTL PO STA (15:36)
--- NOTE | 2018-09-26 15:38 | ED ---
Abdominal Pain HPI - General Chief Complaint: Abdominal Pain Stated Complaint: Abd Pain Time Seen by Provider: 09/26/18 12:34 Source: patient Mode of arrival: ambulatory Limitations: no limitations - History of Present Illness Initial Comments: 42-year-old female presenting today for right upper quadrant pain. Patient states that she has had right upper quadrant pain now since January. She states she has had extensive evaluation by gastroenterology as well as cardiac workup which revealed no abnormalities. Patient states she was told she had a NSTEMI however after further evaluation by another [employer] senior officer she was told she had no CAD. Patient states she had a HIDA scan that revealed overactive gallbladder. Patient states that her right upper quadrant pain does increase with meals. Patient states the pain sometimes radiates around the right side towards the back. Patient denies any vomiting, diarrhea, nausea, fever, chills , jaundice, chest pain, dyspnea, dyspnea on exertion. Patient states she was evaluated 2 days prior to presentation today were cardiac back workup was negative, she states she has had symptoms since discharge. She was told she needs to follow-up with a surgeon, she states she called office today and was told she would be unable to get an appointment until October. Patient presents for right upper quadrant pain, she denies any change in characteristic since January, she states is the same pain she has been experiencing and dealing with. Remaining review of systems negative, Patient denies any recent numbness or tingling, dysuria or hematuria, constipation or diarrhea, headaches or visual changes, or any other complaints. - Related Data Home Medications Medication Instructions Recorded Confirmed Atorvastatin [Lipitor] 80 mg PO HS 04/15/18 09/26/18 Losartan [Cozaar] 50 mg PO HS 04/15/18 09/26/18 Metoprolol Succinate (ER) [Toprol 50 mg PO DAILY 04/15/18 09/26/18 XL] Triamcinolone Acetonide [Nasacort] 1 spray EA NOSTRIL DAILY 04/15/18 09/26/18 metFORMIN HCL [metFORMIN HCL ER] 750 mg PO DAILY 04/15/18 09/26/18 Omeprazole 20 mg PO BID 09/26/18 09/26/18 Previous Rx's Medication Instructions Recorded Aspirin 81 mg PO DAILY chew 02/04/18 Clopidogrel [Plavix] 75 mg PO DAILY #30 tab 02/04/18 Hydrochlorothiazide [Hydrodiuril] 25 mg PO DAILY #30 tab 02/04/18 Nitroglycerin Sl Tabs [Nitrostat] 0.4 mg SUBLINGUAL Q5M PRN #25 tab 02/04/18 Sucralfate [Carafate] 1 gm PO ACHS #400 ml 08/21/18 Allergies Allergy/AdvReac Type Severity Reaction Status Date / Time cinnamon Allergy Rash/Hives/Shortness Verified 09/26/18 12:25 of breathe Review of Systems ROS Statement: Those systems with pertinent positive or pertinent negative responses have been documented in the HPI. ROS Other: All systems not noted in ROS Statement are negative. Past Medical History Past Medical History: Diabetes Mellitus, GERD/Reflux, Hypertension Additional Past Medical History / Comment(s): hx of hypertension and diabetes on medications for 5 years, morbid obesity. History of Any Multi-Drug Resistant Organisms: None Reported Past Surgical History: Heart Catheterization, Heart Catheterization With Stent Additional Past Surgical History / Comment(s): parotid gland mass with lymph nodes Past Anesthesia/Blood Transfusion Reactions: No Reported Reaction Date of Last Stent Placement:: January 2018 Past Psychological History: No Psychological Hx Reported Smoking Status: Former smoker Past Alcohol Use History: None Reported Past Drug Use History: None Reported - Past Family History Father Family Medical History: Diabetes Mellitus, Hypertension Additional Family Medical History / Comment(s): Father is alive at age 62. Mother Family Medical History: Deep Vein Thrombosis (DVT) Additional Family Medical History / Comment(s): Mother is alive at age 58 with no major medical problems. Patient has 2 brothers with no major medical problems. No sisters. Patient is one daughter with no major medical problems. General Exam - General Exam Comments Initial Comments: General: The patient is awake and alert, in no distress, and does not appear acutely ill. Eye: Pupils are equal, round and reactive to light, extra-ocular movements are intact. No nystagmus. There is normal conjunctiva bilaterally. No signs of icterus. Ears, nose, mouth and throat: There are moist mucous membranes and no oral lesions. Neck: The neck is supple, there is no tenderness or JVD. Cardiovascular: There is a regular rate and rhythm. No murmur, rub or gallop is appreciated. Respiratory: Lungs are clear to auscultation, respirations are non-labored, breath sounds are equal. No wheezes, stridor, rales, or rhonchi. Gastrointestinal: No noted diaphoresis, jaundice, pallor, protecting postures or squirming. Symmetrical pigmentation of abdomen without signs of inflammation. Striae present. Umbilicus mildline, inverted without swelling. No dilated veins. Abdomen contour obese, no noted abdominal distention. No visible masses. No peristalsis, aortic pulsations, or ventral hernia. Bowel sounds audible in all 4 quadrants, unremarkable. Tenderness to palpation of the RUQ, no rigidity or guarding. Liver edge, not palpable. Spleen edge, right and left kidney not palpable. Superior bladder margin non-tender. Special Testing: Negative [place], Rovsing, McBurney, Henrique, cutaneous hyperesthesia. Iliopsoas and obturator tests negative bilaterally. Negative Heel Jar test/ corby sign. No CVA tenderness. Digital rectal exam deferred. Negative wei turners or cullens sign. Musculoskeletal: Normal ROM, no tenderness. Strength 5/5. Sensation intact. Pulses equal bilaterally 2+. Neurological: A&O x 3. CN II-XII intact, There are no obvious motor or sensory deficits. Coordination appears grossly intact. Speech is normal. Skin: Skin is warm and dry and no rashes or lesions are noted. Psychiatric: Cooperative, appropriate mood & affect, normal judgment. Limitations: no limitations Course Vital Signs 09/26/18 09/26/18 11:54 14:51 Temperature 97.5 F L Pulse Rate 76 68 Respiratory 18 18 Rate Blood Pressure 160/89 146/96 O2 Sat by Pulse 100 96 Oximetry Medical Decision Making - Medical Decision Making 42-year-old presenting with chronic right upper quadrant pain. PE revealed RUQ pain, no rigidity or guarding, no signs concerning for peritoneal irritation. Patient given pain management in the emergency department, white blood cell count, alk phosphatase and transaminases within normal limits. No ultrasound evidence concerning for cholecystitis. Patient has had history of overactive gallbladder, states symptoms occur with eating food. This I do feel patient has most likely gallbladder disease. I did give patient outpatient referral for surgery. At this time I do not feel patient has acute abdomen, and is stable for outpatient follow-up. I did discuss the case attending provider Dr. Estrada who agreed with impression and plan and recommended short course of ultram for pain mgmt. patient is agreeable plan discharge, denies questions at this time. Return parameters were discussed at length the patient who verbalized understanding. Patient discharged stable condition - Lab Data Result diagrams: 09/26/18 12:05 09/26/18 12:05 Lab Results 09/26/18 09/26/18 09/26/18 Range/Units 12:05 12:05 12:05 WBC 8.3 (3.8-10.6) k/uL RBC 4.75 (3.80-5.40) m/uL Hgb 13.7 (11.4-16.0) gm/dL Hct 40.2 (34.0-46.0) % MCV 84.6 (80.0-100.0) fL MCH 28.8 (25.0-35.0) pg MCHC 34.0 (31.0-37.0) g/dL RDW 12.9 (11.5-15.5) % Plt Count 220 (150-450) k/uL Neutrophils % 73 % Lymphocytes % 19 % Monocytes % 5 % Eosinophils % 1 % Basophils % 1 % Neutrophils # 6.0 (1.3-7.7) k/uL Lymphocytes # 1.6 (1.0-4.8) k/uL Monocytes # 0.4 (0-1.0) k/uL Eosinophils # 0.1 (0-0.7) k/uL Basophils # 0.1 (0-0.2) k/uL Sodium 139 (137-145) mmol/L Potassium 3.7 (3.5-5.1) mmol/L Chloride 104 (98-107) mmol/L Carbon Dioxide 27 (22-30) mmol/L Anion Gap 8 mmol/L BUN 18 H (7-17) mg/dL Creatinine 0.93 (0.52-1.04) mg/dL Est GFR (CKD-EPI)AfAm 89 (>60 ml/min/1.73 sqM) Est GFR (CKD-EPI)NonAf 77 (>60 ml/min/1.73 sqM) Glucose 145 H (74-99) mg/dL Calcium 9.8 (8.4-10.2) mg/dL Total Bilirubin 0.6 (0.2-1.3) mg/dL AST 25 (14-36) U/L ALT 40 (9-52) U/L Alkaline Phosphatase 81 (38-126) U/L Troponin I <0.012 (0.000-0.034) ng/mL Total Protein 8.2 (6.3-8.2) g/dL Albumin 4.6 (3.5-5.0) g/dL Amylase <30 L (30-110) U/L Lipase 93 (23-300) U/L - EKG Data -: EKG Interpreted by Me (and Dr. Estrada) EKG Comments: A 12-lead EKG was performed and shows the following: Rate is 75bpm, and rhythm is normal sinus. There are normal QRS complexes and normal R-wave progression. ST segments have no elevation or depression, and VT segments appear normal. No ST elevation or depression. Nonspecific T-wave abnormality Disposition Clinical Impression: Right upper quadrant abdominal pain, Chronic abdominal pain Disposition: HOME SELF-CARE Condition: Good Instructions (If sedation given, give patient instructions): Abdominal Pain (ED ) Additional Instructions: Please use medication as discussed. Please follow-up with family doctor in the next 2 days. please follow-up with GI as scheduled. Please follow-up with surgery in the next 5 days. Please return to emergency room if the symptoms increase or worsen or for any other concerns. Is patient prescribed a controlled substance at d/c from ED?: No Referrals: Madelyn Corrigan MD [Primary Care Provider] - 1-2 days Kelby Camilo MD [STAFF PHYSICIAN] - 1-2 days Time of Disposition: 15:38
== END 2018-09-26 15:50 | disposition home or self-care (01) ==
LOC: EC 11:45
DX: G89.29 Other chronic pain (principal); R10.11 Right upper quadrant pain; E11.9 Type 2 diabetes mellitus without complications; K21.9 Gastro-esophageal reflux disease without esophagitis; I10 Essential (primary) hypertension; I25.2 Old myocardial infarction; E66.01 Morbid (severe) obesity due to excess calories; Z68.39 Body mass index [BMI] 39.0-39.9, adult; Z95.818 Presence of other cardiac implants and grafts; Z95.5 Presence of coronary angioplasty implant and graft; Z87.891 Personal history of nicotine dependence; Z79.84 Long term (current) use of oral hypoglycemic drugs; Z79.899 Other long term (current) drug therapy; Z91.018 Allergy to other foods
CPT/HCPCS: 99284; 96374; 96375; 96376; 36415; 93005; 80053; 82150; 83690; 84484; 85025; 76705; J2270; J2405

== ENCOUNTER 2018-10-11 06:47 | Day surgery (SDC) | payer OTHER ==
[2018-10-06 14:00] VITALS: BMI 38.7
[~2018-10-11 06:47] MED LIST changes: +DEXAMETHASONE SOD PHOSPHATE 10 MG/ML 1 ML VIAL IV ONE; +HEPARIN SODIUM,PORCINE 5,000 UNIT/ML 1 ML VIAL SQ ONE; -HYDROmorphone 0.5 MG/0.5 ML SYRINGE IVP PRN; -LIDOCAINE 1% 20 ML VIAL (10MG/ML) FOR IV START INTRADERMA PRN; +MIDAZOLAM (PF) 2 MG/2 ML VIAL IV PRN; +ONDANSETRON 4 MG/2 ML VIAL IVP ONE; +SCOPOLAMINE 1.5MG/72HR PATCH TRANSDERM ONE; +ceFAZolin IN SWFI 2 GM/20 ML SYRINGE IVP ONE
[2018-10-11 07:23] LABS: Glucose,Whole Blood 116 mg/dL (75-99)
[2018-10-11] MEDS ORDERED: MIDAZOLAM 2 MG/2 ML VIAL ONE (07:51)
[2018-10-11] MEDS ORDERED: PROPOFOL 10 MG/ML 20 ML VIAL IV ONE (07:51)
[2018-10-11] MEDS ORDERED: LIDOCAINE 1% INJ 10MG/ML (20 ML MDV) ONE (07:51)
[2018-10-11] MEDS ORDERED: PROPAFENONE 150 MG TAB ONE (07:51)
[2018-10-11] MEDS ORDERED: SUCCINYLCHOLINE CHLORIDE 100 MG/5 ML SYR IV ONE (07:51)
[2018-10-11] MEDS ORDERED: GLYCOPYRROLATE 0.2 MG/ML 2 ML VIAL ONE (07:51)
[2018-10-11] MEDS ORDERED: fentaNYL (PF) 50 MCG/ML 2 ML AMP ONE (07:51)
[2018-10-11] MEDS ORDERED: NEOSTIGMINE 1 MG/ML 10 ML VIAL ONE (07:51)
[2018-10-11] MEDS ORDERED: KETOROLAC 30 MG/ML 1 ML VIAL ONE (07:51)
--- NOTE | 2018-10-11 07:53 | P.GSHP ---
History of Present Illness H&P Date: 10/11/18 Chief Complaint: Epigastric and right upper quadrant pain This a 43-year-old female who presents today for laparoscopic cholestatic. Patient's had complaints of right quadrant epigastric pain. Her recent HIDA scan shows elevated ejection fraction consistent with biliary hyperkinesis. Past Medical History Past Medical History: Coronary Artery Disease (CAD), Diabetes Mellitus, GERD/ Reflux, Hyperlipidemia, Hypertension Additional Past Medical History / Comment(s): hx of hypertension and diabetes on medications for 5 years, morbid obesity. History of Any Multi-Drug Resistant Organisms: None Reported Past Surgical History: Heart Catheterization, Heart Catheterization With Stent Additional Past Surgical History / Comment(s): EGD, parotid gland mass with lymph nodes Past Anesthesia/Blood Transfusion Reactions: No Reported Reaction Date of Last Stent Placement:: January 2018 Smoking Status: Former smoker - Past Family History Father Family Medical History: Diabetes Mellitus, Hypertension Additional Family Medical History / Comment(s): Father is alive at age 62. Mother Family Medical History: Deep Vein Thrombosis (DVT) Additional Family Medical History / Comment(s): Mother is alive at age 58 with no major medical problems. Patient has 2 brothers with no major medical problems. No sisters. Patient is one daughter with no major medical problems. Medications and Allergies Home Medications Medication Instructions Recorded Confirmed Type Aspirin 81 mg PO DAILY chew 02/04/18 10/06/18 Rx Clopidogrel [Plavix] 75 mg PO DAILY #30 tab 02/04/18 10/06/18 Rx Hydrochlorothiazide [Hydrodiuril] 25 mg PO DAILY #30 tab 02/04/18 10/06/18 Rx Nitroglycerin Sl Tabs [Nitrostat] 0.4 mg SUBLINGUAL Q5M PRN #25 tab 02/04/18 Rx Atorvastatin [Lipitor] 80 mg PO HS 04/15/18 10/06/18 History Losartan [Cozaar] 50 mg PO HS 04/15/18 10/06/18 History Metoprolol Succinate (ER) [Toprol 50 mg PO DAILY 04/15/18 10/11/18 History XL] Triamcinolone Acetonide [Nasacort] 1 spray EA NOSTRIL DAILY 04/15/18 10/06/18 History metFORMIN HCL [metFORMIN HCL ER] 750 mg PO DAILY 04/15/18 10/06/18 History Omeprazole 20 mg PO BID 09/26/18 10/06/18 History Sucralfate [Carafate] 1 gm PO ACHS PRN 10/06/18 10/06/18 History Allergies Allergy/AdvReac Type Severity Reaction Status Date / Time cinnamon Allergy Rash/Hives/Shortness Verified 10/06/18 13:52 of breathe Surgical - Exam Vital Signs Temp Pulse Resp BP Pulse Ox 97.7 F 98 17 147/75 99 10/11/18 07:12 10/11/18 07:12 10/11/18 07:12 10/11/18 07:12 10/11/18 07:12 - General well developed, well nourished, no distress - Eyes PERRL, normal ocular movement - ENT normal pinna - Neck no masses - Respiratory normal expansion - Cardiovascular Rhythm: regular - Abdomen Abdomen: soft, non tender Results - Labs Abnormal Lab Results - Last 24 Hours (Table) 10/11/18 Range/Units 07:10 POC Glucose (mg/dL) 116 H (75-99) mg/dL Assessment and Plan Assessment: Right upper quadrant pain Biliary hyperkinesia's We'll perform laparoscopic cholecystectomy.
[2018-10-11] MEDS ORDERED: IV FLUID CONTINUATION 1,000 ML IV ONE ×2 (08:56)
[2018-10-11] MEDS: HYDROmorphone 0.5 MG/0.5 ML SYRINGE IVP PRN ×4 (08:59→09:32)
--- NOTE | 2018-10-11 09:07 | P.OP ---
Date of Procedure: 10/11/18 Preoperative Diagnosis: Cholecystitis Postoperative Diagnosis: Cholecystitis Procedure(s) Performed: Laparoscopic cholecystectomy Anesthesia: LENA Surgeon: Kelby Camilo Estimated Blood Loss (ml): 5 Pathology: other (Gallbladder) Condition: stable Disposition: PACU Description of Procedure: The patient was placed on the operating table. The patient received a general endotracheal tube anesthesia. The patients abdomen was prepped and draped in the usual sterile fashion. Through an infraumbilical stab incision, the fascia of the anterior abdominal wall was grasped with a pair of Kochers and then the Veress needle was placed in the peritoneal cavity. Position of the Veress needle was confirmed with positive drop test. The abdomen was then insufflated. After adequate insufflation, the 10 mm trocar was placed in the peritoneal cavity. Following this the laparoscope was placed in the peritoneal cavity. The patient was placed in the head-up, right side up position and then a 5 mm trocar was placed in the right lateral and right subcostal position under direct visualization. A 8 mm trocar was placed in the epigastric position. The gallbladder was grasped in the fundus and infundibulum. Traction on the gallbladder was placed in the lateral and the cephalad positions. The triangle of Calot was visualized.. The cystic duct was bluntly dissected until the union of the cystic duct and common bile duct was seen. The cystic duct was then divided and sealed with the Harmonic scissors. A PDS Endoloop was then placed throughout the cystic duct stump. The cystic artery divided and sealed with the Harmonic scissors. The gallbladder was then removed from the liver bed using Harmonic scissors. The gallbladder was then extracted through the epigastric port site. Operative field was checked for any bleeding spots and Harmonic scissors was used to coagulate the liver bed. The abdomen was irrigated. The trocars were removed. The skin was closed using interrupted 3-0 Vicryl suture. Dermabond dressing were applied. The patient tolerated the procedure well.
[2018-10-11 09:12] VITALS: TEMP 97.4
[2018-10-11 09:16] VITALS: RESP 16
[2018-10-11 09:23] LABS: Glucose,Whole Blood 139 mg/dL (75-99)
[2018-10-11] MEDS ORDERED: LACTATED RINGERS 1,000 ML IV ONE ×2 (09:27)
[2018-10-11] MEDS ORDERED: HYDROcodone/APAP 7.5-325MG 1 EACH TAB PO ONE (10:05)
[2018-10-11 10:06] VITALS: PULSE 75
[2018-10-11 10:44] VITALS: BP 132/80
== END 2018-10-11 10:41 | disposition home or self-care (01) ==
LOC: OR 06:47
PROVIDERS: ATTEND Surgery
DX: K81.1 Chronic cholecystitis (principal); I25.10 Atherosclerotic heart disease of native coronary artery without angina pectoris; I10 Essential (primary) hypertension; E11.9 Type 2 diabetes mellitus without complications; K21.9 Gastro-esophageal reflux disease without esophagitis; Z95.5 Presence of coronary angioplasty implant and graft; E78.5 Hyperlipidemia, unspecified; Z87.891 Personal history of nicotine dependence; E66.01 Morbid (severe) obesity due to excess calories; Z68.38 Body mass index [BMI] 38.0-38.9, adult; Z79.84 Long term (current) use of oral hypoglycemic drugs; Z79.02 Long term (current) use of antithrombotics/antiplatelets; Z79.82 Long term (current) use of aspirin; Z79.899 Other long term (current) drug therapy; Z91.018 Allergy to other foods
CPT/HCPCS: 81025; 88304; 47562; J2250; J1644; J1100; J2710; J2405; J2001; J3010; J1885; J0330; J2704; J1170; J0690

== ENCOUNTER 2019-04-20 21:01 | Emergency (ER) | payer BC, OTHER ==
--- NOTE | 2019-04-20 21:33 | ED ---
Chest Pain HPI - General Chief Complaint: Chest Pain Stated Complaint: Chest tightness, right side numbness Time Seen by Provider: 04/20/19 21:09 Source: patient Mode of arrival: wheelchair Limitations: no limitations - History of Present Illness Initial Comments: This patient is a 43-year-old woman who complains of having pain in the substernal and epigastric area going on for about 2 weeks now. She states that it became a little worse tonight so she decided to be seen here. She describes it as a tightness, moderate intensity although now it is mild. She did not have any associated symptoms. She did not discover any worsening or relieving factors. She was at rest when the pain came on. MD Complaint: chest pain Onset/Timin -: week(s) Onset: during rest Pain Location: substernal, epigastric Pain Radiation: none Severity: moderate Quality: tightness Consistency: constant Improves With: nothing Worsens With: nothing Treatments Prior to Arrival: none - Related Data Home Medications Medication Instructions Recorded Confirmed Atorvastatin [Lipitor] 80 mg PO DAILY@0600 04/15/18 04/20/19 Losartan [Cozaar] 50 mg PO DAILY@0600 04/15/18 04/20/19 Metoprolol Succinate (ER) [Toprol 50 mg PO HS@1800 04/15/18 04/20/19 XL] metFORMIN HCL [metFORMIN HCL ER] 750 mg PO DAILY@0600 04/15/18 04/20/19 Aspirin 81 mg PO HS@1800 04/20/19 04/20/19 Clopidogrel [Plavix] 75 mg PO HS@1800 04/20/19 04/20/19 Hydrochlorothiazide [Hydrodiuril] 25 mg PO HS@1800 04/20/19 04/20/19 sitaGLIPtin [Januvia] 100 mg PO HS@1800 04/20/19 04/20/19 Allergies Allergy/AdvReac Type Severity Reaction Status Date / Time cinnamon Allergy Rash/Hives/Shortness Verified 04/20/19 21:19 of breathe Review of Systems ROS Statement: Those systems with pertinent positive or pertinent negative responses have been documented in the HPI. ROS Other: All systems not noted in ROS Statement are negative. Constitutional: Denies: fever, chills Respiratory: Denies: cough, dyspnea Cardiovascular: Reports: as per HPI, chest pain. Denies: palpitations, orthopnea, edema, syncope Gastrointestinal: Denies: abdominal pain, nausea, vomiting, diarrhea Genitourinary: Denies: dysuria, hematuria Musculoskeletal: Denies: back pain Skin: Denies: rash Neurological: Denies: headache, weakness, numbness EKG Findings - EKG Results: EKG: interpreted by RASHEED, sinus rhythm (Rate 76 bpm), normal axis, normal QRS, normal ST/T, no acute changes - ME, Pacemaker, Normal: Normal tracing: normal tracing Past Medical History Past Medical History: Coronary Artery Disease (CAD), Diabetes Mellitus, GERD/Reflux, Hyperlipidemia, Hypertension Additional Past Medical History / Comment(s): hx of hypertension and diabetes on medications for 5 years, morbid obesity. History of Any Multi-Drug Resistant Organisms: None Reported Past Surgical History: Heart Catheterization, Heart Catheterization With Stent Additional Past Surgical History / Comment(s): EGD, parotid gland mass with lymph nodes Past Anesthesia/Blood Transfusion Reactions: No Reported Reaction Date of Last Stent Placement:: January 2018 Past Psychological History: No Psychological Hx Reported Smoking Status: Former smoker Past Alcohol Use History: None Reported Past Drug Use History: None Reported - Past Family History Father Family Medical History: Diabetes Mellitus, Hypertension Additional Family Medical History / Comment(s): Father is alive at age 62. Mother Family Medical History: Deep Vein Thrombosis (DVT) Additional Family Medical History / Comment(s): Mother is alive at age 58 with no major medical problems. Patient has 2 brothers with no major medical problems. No sisters. Patient is one daughter with no major medical problems. General Exam Limitations: no limitations General appearance: alert, in no apparent distress Head exam: Present: atraumatic, normocephalic Eye exam: Present: normal appearance. Absent: scleral icterus, conjunctival injection ENT exam: Present: normal oropharynx Neck exam: Present: normal inspection Respiratory exam: Present: normal lung sounds bilaterally. Absent: respiratory distress, wheezes, rales, rhonchi, stridor Cardiovascular Exam: Present: regular rate, normal rhythm, normal heart sounds. Absent: systolic murmur, diastolic murmur, rubs, gallop GI/Abdominal exam: Present: soft, tenderness (Mild epigastric tenderness without rebound or guarding). Absent: distended, guarding, rebound, rigid, mass, pulsatile mass, hernia Extremities exam: Present: normal inspection, normal capillary refill. Absent: pedal edema, calf tenderness Back exam: Present: normal inspection. Absent: CVA tenderness (R), CVA tenderness (L) Neurological exam: Present: alert Skin exam: Present: warm, dry, intact, normal color. Absent: rash Course Vital Signs 04/20/19 04/20/19 04/20/19 21:04 22:08 23:10 Temperature 97.8 F 97.3 F L Pulse Rate 80 82 75 Respiratory 18 18 18 Rate Blood Pressure 152/88 138/78 133/76 O2 Sat by Pulse 99 98 99 Oximetry 04/21/19 00:55 Temperature 98.6 F Pulse Rate 76 Respiratory 16 Rate Blood Pressure 117/88 O2 Sat by Pulse 99 Oximetry Chest Pain [facility] Patient is a 43-year-old woman who has been having chest pains and epigastric pains for 2 weeks. She did have relief here with the peace cocktail. She had 2 negative troponins and her ECG is normal. In addition she had a heart cath one year ago which did not show significant lesions. The patient does have regular follow-up with cardiology and is due to follow up with them shortly regarding a monitor she is wearing. Patient was offered admission but would prefer to go home and follow up as outpatient. We discussed appropriate follow-up as well as the return parameters. Disposition Clinical Impression: Chest pain Disposition: HOME SELF-CARE Condition: Good Instructions (If sedation given, give patient instructions): Chest Pain (ED) Is patient prescribed a controlled substance at d/c from ED?: No Referrals: Madelyn Corrigan MD [Primary Care Provider] - 1-2 days
--- NOTE | 2019-04-20 21:51 | XR ---
EXAMINATION TYPE: XR chest 2V DATE OF EXAM: 04/20/2019 COMPARISON: 09/24/2018 HISTORY: Chest pain TECHNIQUE: Frontal and lateral views of the chest are obtained. FINDINGS: Heart and mediastinum are normal. Lungs are clear. Diaphragm is normal. There are chest le ads. Bony thorax is intact. IMPRESSION: Normal chest. No change.
[2019-04-20 21:55] LABS: Basophils # (A) 0.1 k/uL (0-0.2); Basophils % (A) 1 %; Eosinophils # (A) 0.1 k/uL (0-0.7); Eosinophils % (A) 2 %; HCT 36.6 % (34.0-46.0); HGB 12.3 gm/dL (11.4-16.0); Lymphocytes # (A) 1.3 k/uL (1.0-4.8); Lymphocytes % (A) 14 %; MCHC 33.7 g/dL (31.0-37.0); MCV 83.2 fL (80.0-100.0); Monocytes # (A) 0.4 k/uL (0-1.0); Monocytes % (A) 4 %; Neutrophils # (A) 7.2 k/uL (1.3-7.7); Neutrophils % (A) 78 %; Platelet Count 254 k/uL (150-450); RDW 12.9 % (11.5-15.5); WBC 9.2 k/uL (3.8-10.6)
[2019-04-20 22:11] LABS: Albumin 4.3 g/dL (3.5-5.0); Calcium 9.3 mg/dL (8.4-10.2); Magnesium 1.9 mg/dL (1.6-2.3); Potassium 3.9 mmol/L (3.5-5.1); Total Bilirubin 0.5 mg/dL (0.2-1.3); Total Protein 7.8 g/dL (6.3-8.2)
[2019-04-20 22:19] LABS: D-Dimer 0.41 mg/L FEU (<0.60); INR 0.9 (<1.2); Partial Thromboplastin Time 25.2 sec (22.0-30.0); Prothrombin Time 9.8 sec (9.0-12.0)
[2019-04-20] MEDS ORDERED: MAG HYDROX/AL HYDROX/SIMETH 30 ML, HYOSCYAMINE ELIXIR 10 ML, CIMETIDINE HCL 300 MG, LID... PO STA ×4 (23:03)
[2019-04-21 01:22] VITALS: BP 117/88; PULSE 76; RESP 16; TEMP 98.6
== END 2019-04-21 00:55 | disposition home or self-care (01) ==
LOC: EC 21:01
DX: R07.89 Other chest pain (principal); R10.13 Epigastric pain; I25.10 Atherosclerotic heart disease of native coronary artery without angina pectoris; E11.9 Type 2 diabetes mellitus without complications; E78.5 Hyperlipidemia, unspecified; I10 Essential (primary) hypertension; Z87.891 Personal history of nicotine dependence; Z91.018 Allergy to other foods; Z79.02 Long term (current) use of antithrombotics/antiplatelets; Z79.82 Long term (current) use of aspirin; Z79.84 Long term (current) use of oral hypoglycemic drugs; Z79.899 Other long term (current) drug therapy; Z95.5 Presence of coronary angioplasty implant and graft; Z82.49 Family history of ischemic heart disease and other diseases of the circulatory system
CPT/HCPCS: 36415; 71046; 80053; 82150; 83690; 83735; 83880; 84484; 85025; 85379; 85610; 85730; 93005; 99285

== ENCOUNTER → 2019-05-17 | Outpatient (CLI) | payer BC ==
--- NOTE | 2019-05-17 16:32 | CT ---
EXAMINATION TYPE: CT sinus wo con DATE OF EXAM: 05/17/2019 COMPARISON: NONE HISTORY: chronic sinus disease , nasal congestion CT DLP: 440.7 mGycm. Automated Exposure Control for Dose Reduction was Utilized. TECHNIQUE: CT scan of the sinuses is performed without contrast, axial images are obtained, coronal r eformatted images are also reviewed. FINDINGS. Small mucous retention cysts or polyps in the posterior inferior right maxillary sinus. Tin y mucous retention cyst posterior superior left maxillary sinus coronal image 29. Remainder of sinus es are clear without suspicious opacification or air-fluid levels The ostiomeatal complex is patent b ilaterally on the coronal images. Nasal septum slightly deviated to right of midline. Visualized portion of mastoid air cells show no abnormal opacification. The globes are intact bilate rally. Some artifact right globe noted on axial images. Visualized brain parenchyma unremarkable. IMPRESSION: Some chronic bilateral maxillary sinus disease. No acute sinusitis.
== END ==
LOC: RADCTMAIN 16:00
PROVIDERS: ATTEND Otolaryngology
DX: J32.0 Chronic maxillary sinusitis (principal)
CPT/HCPCS: 70486

== ENCOUNTER → 2019-06-19 | Outpatient (CLI) | payer BC ==
[2019-06-19 07:01] LABS: HCT 35.4 % (34.0-46.0); HGB 12.2 gm/dL (11.4-16.0); MCH 29.3 pg (25.0-35.0); MCHC 34.5 g/dL (31.0-37.0); Mean Platelet Volume 6.6; Platelet Count 241 k/uL (150-450); RBC 4.17 m/uL (3.80-5.40); RDW 12.6 % (11.5-15.5); WBC 9.6 k/uL (3.8-10.6)
[2019-06-19 07:14] LABS: Potassium 3.4 mmol/L (3.5-5.1)
== END | disposition home or self-care (01) ==
LOC: LABPAT 06:36
PROVIDERS: ATTEND Internal Medicine Clinical Cardiac Electrophysiology
DX: Z01.812 Encounter for preprocedural laboratory examination (principal); I47.2 Ventricular tachycardia; I25.10 Atherosclerotic heart disease of native coronary artery without angina pectoris
CPT/HCPCS: 36415; 80051; 82565; 82947; 84520; 85027

== ENCOUNTER 2019-06-29 08:43 | Day surgery (SDC) | payer BC ==
[2019-06-29] MEDS ORDERED: SODIUM CHLORIDE 0.9% 1,000 ML IV ONE (09:13)
[2019-06-29 09:29] LABS: Glucose,Whole Blood 119 mg/dL (75-99)
[2019-06-29] MEDS ORDERED: ISOPROTERENOL 250 MCG/1.25 ML SYR IV ONE (09:52)
[2019-06-29] MEDS ORDERED: MIDAZOLAM 2 MG/2 ML VIAL ONE (09:52)
[2019-06-29] MEDS ORDERED: fentaNYL (PF) 50 MCG/ML 2 ML AMP ONE (09:52)
[2019-06-29] MEDS ORDERED: PROPOFOL 10 MG/ML 20 ML VIAL IV ONE (09:52)
[2019-06-29] MEDS ORDERED: LIDOCAINE 1% INJ 10MG/ML (20 ML MDV) ONE (10:03)
--- NOTE | 2019-06-29 10:21 | P.HPCAR ---
History of Present Illness This is Ruth Rice PA-C dictating an H&P on this patient The patient was interviewed and examined by me as well as by Dr. Galvez Case discussed with Dr. Galvez and he agrees with the plan of care IMPRESSION / ASSESSMENT: Symptomatic nonsustained ventricular tachycardia despite beta bebeto therapy, normal LV function, and most recent stress test showing no reversible ischemia CAD status post stenting Hypertension Dyslipidemia Diabetes PLAN: Proceed with diagnostic EP study and further management depending upon any inducible arrhythmias HPI Patient is a 43-year-old female with a past medical history of CAD status post stenting to the LAD, hypertension, dyslipidemia and diabetes, who presents for evaluation and management of NSVT. Patient has had palpitations and underwent an event monitor showing an irregular wide complex tachycardia, consistent with nonsustained ventricular tachycardia. Her most recent stress test was negative for reversible ischemia. Her most recent echocardiogram showed preserved LV systolic function. She is on beta blockers. Patient seen and examined resting comfortably in bed. States she did have another episode of palpitations last night. No associated dizziness. No chest pain or shortness of breath. She has been feeling well otherwise. No recent infections. ROS: No fevers, chills or rigors, no cough, phlegm or expectoration, no nausea, vomiting or diarrhea, no hematuria, dysuria, no musculoskeletal complaints, no strokes or seizures, no skin lesions. EXAMINATION: Temperature 98F, pulse 92, respirations 16, blood pressure 142/90, oxygen saturation 98% on room air Patient seen and examined resting comfortably in bed, in no acute distress Lungs clear to auscultation bilaterally, no rhonchi, wheezing or crackles appreciated Heart is regular, normal S1-S2, no murmurs noted No elevated JVD Extremities warm, No lower extremity edema Abdomen soft and nontender to palpation REVIEW OF LABS, ECG & MEDICAL DATA Most recent labs reviewed, WBC 9.6, hemoglobin 12.2, platelets 241, sodium 142, potassium 3.4, BUN 22, creatinine 0.96, magnesium 1.9 Physical Exam Vitals: Vital Signs Temp Pulse Resp BP Pulse Ox 06/29/19 09:13 98 F 92 16 142/90 98 Intake and Output 06/28/19 06/29/19 06/29/19 22:59 06:59 14:59 Intake Total 50 Output Total 200 Balance -150 Intake: IV 50 Output: Urine 200 Other: Weight 126.3 kg Past Medical History Past Medical History: Coronary Artery Disease (CAD), Diabetes Mellitus, GERD/Reflux, Hypertension Additional Past Medical History / Comment(s): hx of hypertension and diabetes on medications for 5 years, morbid obesity. RAPID HEART RATE History of Any Multi-Drug Resistant Organisms: None Reported Past Surgical History: Cholecystectomy, Heart Catheterization, Heart Catheterization With Stent Additional Past Surgical History / Comment(s): EGD, parotid gland mass with lymph nodes Past Anesthesia/Blood Transfusion Reactions: No Reported Reaction Date of Last Stent Placement:: January 2018 Smoking Status: Former smoker - Past Family History Father Family Medical History: Diabetes Mellitus, Hypertension Additional Family Medical History / Comment(s): Father is alive at age 62. Mother Family Medical History: Deep Vein Thrombosis (DVT) Additional Family Medical History / Comment(s): Mother is alive at age 58 with no major medical problems. Patient has 2 brothers with no major medical problems. No sisters. Patient is one daughter with no major medical problems. Physical Examination Vital Signs Temp Pulse Resp BP Pulse Ox 06/29/19 09:13 98 F 92 16 142/90 98 Intake and Output 06/28/19 06/29/19 06/29/19 22:59 06:59 14:59 Intake Total 50 Output Total 200 Balance -150 Intake: IV 50 Output: Urine 200 Other: Weight 126.3 kg Results Current Medications Generic Name Dose Route Start Last Admin Trade Name Freq PRN Reason Stop Dose Admin Sodium Chloride 1,000 mls @ 20 mls/hr 06/29/19 06:24 Saline 0.9% IV .Q24H HEATHER Intake and Output 06/28/19 06/29/19 06/29/19 22:59 06:59 14:59 Intake Total 50 Output Total 200 Balance -150 Intake: IV 50 Output: Urine 200 Other: Weight 126.3 kg Patient Weight 06/30/19 06:59 Weight 126.3 kg
[2019-06-29] MEDS ORDERED: LIDOCAINE 1% INJ 10MG/ML (20 ML MDV) SQ ONE (10:27)
[2019-06-29] MEDS ORDERED: ACETAMINOPHEN TAB 325 MG TAB PO PRN (12:41)
[2019-06-29] MEDS ORDERED: HYDROcodone/APAP 5-325MG 1 EACH TAB PO PRN (12:41)
[2019-06-29] MEDS ORDERED: ACETAMINOPHEN IV (For NPO) 1,000 MG in EMPTY BAG 1 BAG IVPB ONE (12:41)
[2019-06-29 13:33] VITALS: BMI 42.3
[2019-06-29] MEDS: SODIUM CHLORIDE 0.9% 1,000 ML IV SCH (13:42)
--- NOTE | 2019-06-29 16:45 | P.PCN ---
Preoperative Diagnosis: Preoperative diagnosis: Nonsustained ventricular tachycardia, history of PA, most recent stress test negative for ischemia, EF preserved Final impression: Normal baseline measurements Normal sinus node function Antegrade slow pathway without induction of AV nola reentry No inducible ventricular tachycardia with and without Isuprel up to triple extrastimuli and burst stimulation Easily inducible sustained atrial fibrillation with straight pacing requiring electrical cardioversion Patient was brought to the EP lab in a fasting state, written informed consent was obtained prior to the procedure The right groin was prepped and draped per protocol 3 venous sheaths were placed in the right femoral vein via appropriately sized sheaths, catheters were placed in the high right atrium, His bundle area, and right ventricle Baseline measurements Sinus cycle length 659 ms VT 157 ms, QRS 105 ms, QT 266 ms AH 63 seconds, HV 56 ms parahisian pacing revealed a nola response Sinus node recovery times at 600 500 400 ms were 1036, 1130, 900 respectively Corresponding corrected sinus node recovery times within normal limits Straight pacing was performed from high right atrium Slow pathway noted at 330 ms Straight pacing thereafter induced atrial fibrillation The patient remained in atrial fibrillation and therefore ventricular stimulation protocol was performed Burst stimulation from the right ventricle from 400 ms down to 200 ms Ventricular extra stimulation at a drive train of 350 ms up to triple extra stimulation No VT induced Synchronized electrical cardioversion performed at 360 J Successful conversion to sinus rhythm Extra stimulation at a drive train of 600 ms up to triple extra stimulation performed No VT induced Isuprel started wide open and then 2 mics VAWB block at 230 ms Ventricular extra stimulation at 400 ms up to triple extrastimuli performed Burst stimulation from 400 down to 200 ms No VT induced Isuprel discontinued Straight pacing performed from high right atrium slow pathway noted at 260 ms AV node Wenckebach block at 220 ms No inducible AV node reentry At the end of the procedure all sheaths were removed and hemostasis was assured Patient tolerated the procedure well without any acute complications
[2019-06-29] MEDS ORDERED: LINAGLIPTIN 5 MG TABLET PO SCH (18:00)
[2019-06-29] MEDS ORDERED: ASPIRIN 81 MG PO SCH (18:00)
[2019-06-29] MEDS ORDERED: METOPROLOL SUCCINATE (ER) 25 MG TAB.ER.24H PO SCH (18:00)
[2019-06-29] MEDS ORDERED: CLOPIDOGREL 75 MG TAB PO SCH (18:00)
[2019-06-29] MEDS ORDERED: HYDROCHLOROTHIAZIDE 25 MG TAB PO SCH (18:00)
[2019-06-29 20:32] VITALS: RESP 18
[2019-06-30] MEDS ORDERED: LOSARTAN 50 MG TAB PO SCH (06:00)
[2019-06-30] MEDS ORDERED: ATORVASTATIN 80 MG TAB PO SCH (06:00)
[2019-06-30] MEDS ORDERED: metFORMIN 500 MG TAB PO SCH (06:00)
[2019-06-30 06:38] LABS: Glucose,Whole Blood 117 mg/dL (75-99)
[2019-06-30 06:50] VITALS: BP 122/81; PULSE 68; TEMP 98.1
[2019-06-30] MEDS: SODIUM CHLORIDE 0.9% 1,000 ML IV SCH (06:56)
--- NOTE | 2019-06-30 13:15 | P.DS ---
Providers Attending physician: Breezy Galvez Primary care physician: [facility] Course: This is a 43-year-old female past medical history significant for coronary artery disease s/p PCI LAD, hypertension and diabetes mellitus. She underwent a diagnostic EP study yesterday with no inducible VT, easily inducible a-fib s/p cardioversion and normal sinus node function. She is seen and examined sitting up in the chair in no acute distress. Right groin femoral access site clean, dry and intact with no hematoma, bleeding or ecchymosis. No chest pain, shortness of breath, dizziness or palpitations. Blood pressure 122/81 heart rate 68 afebrile and maintaining oxygen saturation on room air. GENERAL: Well-appearing, well-nourished and in no acute distress. NECK: Supple without JVD or thyromegaly. LUNGS: Breath sounds clear to auscultation bilaterally. Respiration equal and unlabored. No wheezes, rales or rhonchi. HEART: Regular rate and rhythm without murmurs, rubs or gallops. S1 and S2 heard. EXTREMITIES: Normal range of motion, no edema. No clubbing or cyanosis. Peripheral pulses intact. Right femoral access site soft, non-tender, no hematoma or ecchymosis. ASSESSMENT Palpitations with VT on outpatient monitor s/p EP study Coronary artery disease s/p PCI Hypertension Dysplipidemia Diabetes mellitus Morbid obesity, BMI 42 PLAN Stable for discharge. May return to work Wednesday with no restrictions. Avoid excess movement of the right leg for the next 48 hours. Resume home medications with no changes. Follow up in the office next week for groin check. Nurse Practitioner note has been reviewed, I agree with a documented findings and plan of care. Patient was seen and examined. Plan - Discharge Summary Discharge Rx Participant: Yes New Discharge Prescriptions: Continue metFORMIN HCL [metFORMIN HCL ER] 750 mg PO DAILY@0600 Metoprolol Succinate (ER) [Toprol XL] 75 mg PO HS@1800 Atorvastatin [Lipitor] 80 mg PO DAILY@0600 Losartan [Cozaar] 50 mg PO DAILY@0600 sitaGLIPtin [Januvia] 100 mg PO HS@1800 Hydrochlorothiazide [Hydrodiuril] 25 mg PO HS@1800 Clopidogrel [Plavix] 75 mg PO HS@1800 Aspirin 81 mg PO HS@1800 Discharge Medication List Atorvastatin [Lipitor] 80 mg PO DAILY@0600 04/15/18 [History] Losartan [Cozaar] 50 mg PO DAILY@59904/15/18 [History] Metoprolol Succinate (ER) [Toprol XL] 75 mg PO HS@179904/15/18 [History] metFORMIN HCL [metFORMIN HCL ER] 750 mg PO DAILY@59904/15/18 [History] Aspirin 81 mg PO HS@179904/20/19 [History] Clopidogrel [Plavix] 75 mg PO HS@179904/20/19 [History] Hydrochlorothiazide [Hydrodiuril] 25 mg PO HS@179904/20/19 [History] sitaGLIPtin [Januvia] 100 mg PO HS@179904/20/19 [History] Follow up Appointment(s)/Referral(s): Breezy Galvez MD [STAFF PHYSICIAN] - 07/04/19 1:45 pm () Patient Instructions/Handouts: Electrophysiology Study (DC) Activity/Diet/Wound Care/Special Instructions: Post EP study - Ablation instructions 1. Keep access sites dry for 2 days. 2. No heavy lifting or straining for 2 days. 3. Avoid bending the hips repeatedly for 2 days. 4. You may go up and down stairs slowly Call if the following is noted 1. Bleeding, increasing swelling or pain at the access sites. 2. Increasing chest discomfort, especially upon taking a deep breath. 3. Increasing shortness of breath, at rest or with exertion. 4. Undue cough / phlegm 5. Difficulty or pain while swallowing. 6. Pain or change in color in the extremities. 7. Fever, chills, rigors. 8. Increasing headache or neurologic symptoms. 9. Dizziness, fainting, palpitations Continue all cardiac medications as previously prescribed Discharge Disposition: HOME SELF-CARE
== END 2019-06-30 10:55 | disposition home or self-care (01) ==
LOC: CATHEP 08:43 → 1SOBS 12:41 → CATHEP 06-30 10:55
PROVIDERS: ATTEND Internal Medicine Clinical Cardiac Electrophysiology
DX: I47.2 Ventricular tachycardia (principal); I48.91 Unspecified atrial fibrillation; I25.10 Atherosclerotic heart disease of native coronary artery without angina pectoris; I10 Essential (primary) hypertension; Z87.891 Personal history of nicotine dependence; E78.5 Hyperlipidemia, unspecified; E11.9 Type 2 diabetes mellitus without complications; E66.01 Morbid (severe) obesity due to excess calories; Z68.41 Body mass index [BMI] 40.0-44.9, adult; I25.2 Old myocardial infarction; Z83.3 Family history of diabetes mellitus; Z82.49 Family history of ischemic heart disease and other diseases of the circulatory system; Z84.89 Family history of other specified conditions; Z79.84 Long term (current) use of oral hypoglycemic drugs; Z79.02 Long term (current) use of antithrombotics/antiplatelets; Z79.899 Other long term (current) drug therapy
CPT/HCPCS: 92960; 93623; 93620; 84132; C1894; C1769 ×2; C1730; J2001

== ENCOUNTER → 2020-04-10 | Outpatient (CLI) | payer BC ==
[2020-04-10 08:18] LABS: Basophils # (A) 0.1 k/uL (0-0.2); Basophils % (A) 1 %; Eosinophils # (A) 0.2 k/uL (0-0.7); Eosinophils % (A) 2 %; HCT 41.1 % (34.0-46.0); HGB 13.2 gm/dL (11.4-16.0); Lymphocytes # (A) 2.3 k/uL (1.0-4.8); Lymphocytes % (A) 26 %; MCHC 32.1 g/dL (31.0-37.0); MCV 84.3 fL (80.0-100.0); Mean Platelet Volume 8.4; Monocytes # (A) 0.4 k/uL (0-1.0); Monocytes % (A) 4 %; Neutrophils # (A) 5.8 k/uL (1.3-7.7); Neutrophils % (A) 66 %; Platelet Count 241 k/uL (150-450); RBC 4.88 m/uL (3.80-5.40); WBC 8.8 k/uL (3.8-10.6)
[2020-04-10 16:44] LABS: African American GFR (CKD) 79.9 (60.0-200.0); Albumin 4.3 g/dL (3.80-4.90); Albumin/Globulin Ratio 1.43 (1.60-3.17); Anion Gap 7.1 mmol/L (4.00-12.00); Calcium 9.6 mg/dL (8.7-10.3); Carbon Dioxide 28.9 mmol/L (21.6-31.8); Chol/HDL Ratio 4.09; LDL Cholesterol,Calculated 64.8 mg/dL (0.0-131.0); Magnesium 1.8 mg/dL (1.5-2.4); Non-African American GFR(CKD) 68.9 (60.0-200.0); Potassium 3.8 mmol/L (3.5-5.5); Total Bilirubin 0.5 mg/dL (0.2-1.2); Total Protein 7.3 g/dL (6.2-8.2); VLDL Calculation 37.2 mg/dL (5.00-40.00)
[2020-04-10 16:52] LABS: T4, Free (Free Thyroxine) 1.2 ng/dL (0.80-1.80)
[2020-04-10 17:07] LABS: Hemoglobin A1C 10.9 % (4.0-6.0)
== END | disposition home or self-care (01) ==
LOC: LABWHC1 07:14
PROVIDERS: ATTEND Family Medicine
DX: I10 Essential (primary) hypertension (principal); E11.9 Type 2 diabetes mellitus without complications; I25.84 Coronary atherosclerosis due to calcified coronary lesion
CPT/HCPCS: 36415; 80053; 80061; 82043; 82550; 82570; 82607; 83036; 83090; 83735; 84439; 84443; 85025

== ENCOUNTER → 2021-12-05 | Outpatient (CLI) | payer BC ==
[2021-12-05 23:05] LABS: ALT 35 U/L (8-44); AST 33 U/L (13-35); African American GFR (CKD) 70.2 (60.0-200.0); Albumin 4.7 g/dL (3.8-4.9); Albumin/Globulin Ratio 1.45 (1.60-3.17); Alkaline Phosphatase 93 U/L (41-126); BUN/Creat Ratio 18.27 Ratio (12.00-20.00); Blood Urea Nitrogen 20.1 mg/dL (9.0-27.0); Calcium 9.9 mg/dL (8.7-10.3); Carbon Dioxide 15.6 mmol/L (20.0-27.5); Chloride 99 mmol/L (96-109); Globulin 3.3 g/dL (1.6-3.3); Glucose 102 mg/dL (70-110); Non-African American GFR(CKD) 60.6 (60.0-200.0); Potassium 2.9 mmol/L (3.5-5.5); Sodium 140 mmol/L (135-145)
== END | disposition home or self-care (01) ==
LOC: LABWHC1 09:02
PROVIDERS: ATTEND Internal Medicine Endocrinology, Diabetes & Metabolism
DX: E11.65 Type 2 diabetes mellitus with hyperglycemia (principal)
CPT/HCPCS: 36415; 80053; 80061; 82043; 82570; 83036; 84443

== ENCOUNTER → 2022-01-16 | Outpatient (CLI) | payer BC ==
[2022-01-16 15:10] LABS: African American GFR (CKD) 127.6 (60.0-200.0); Blood Urea Nitrogen 10.8 mg/dL (9.0-27.0); Calcium 9.2 mg/dL (8.7-10.3); Magnesium 1.5 mg/dL (1.5-2.4); Non-African American GFR(CKD) 110.1 (60.0-200.0); Potassium 3.3 mmol/L (3.5-5.5)
== END | disposition home or self-care (01) ==
LOC: LABWHC1 08:54
PROVIDERS: ATTEND Nurse Practitioner Adult Health
DX: I10 Essential (primary) hypertension (principal)
CPT/HCPCS: 36415; 80048; 83735

== ENCOUNTER → 2022-04-23 | Outpatient (CLI) | payer BC ==
--- NOTE | 2022-04-23 11:11 | MM ---
Reason for Exam: Clinical finding. Baseline mammogram. Patient History: Menarche at age 17. First Full-Term at age 17. Risk Values: Margie 5 year model risk: 0.5%. NCI Lifetime model risk: 6.4%. Prior Study Comparison: Patient's first Mammogram. Tissue Density: The breast tissue is heterogeneously dense. This may lower the sensitivity of mammography. Findings: Analyzed By CAD. 2.1 circumscribed subareolar mass on the left breast. Ultrasound recommended. Lateral anterior asymmetric density right CC view disperses on additional views. Overall Assessment: Incomplete: need additional imaging evaluation, BI-RAD 0 Management: Diagnostic Breast Ultrasound of the left breast. A clinical breast exam by your physician is recommended on an annual basis and results should be correlated with mammographic findings. This exam should not preclude additional follow-up of suspicious palpable abnormalities. Results were given to the patient verbally at the time of exam. Electronically signed and approved by: Giorgio Gonzalez M.D. Radiologist
--- NOTE | 2022-04-23 11:15 | USB ---
Reason for Exam: Clinical finding. Patient History: Menarche at age 17. First Full-Term at age 17. Risk Values: Margie 5 year model risk: 0.5%. NCI Lifetime model risk: 6.4%. Technique: Method: Targeted. Findings: The area of palpable concern of the left breast, the axilla of the left breast and the retroareolar of the left breast were scanned. Left limited breast ultrasound including focal area of concern, retroareolar and axilla demonstrates a 2.1 x 1.2 x 1.7cm hypoechoic lesion at 1 o'clock posterior nipple. Overall Assessment: Suspicious, BI-RAD 4 Management: Ultrasound Core Biopsy of the left breast. A clinical breast exam by your physician is recommended on an annual basis and results should be correlated with mammographic findings. This exam should not preclude additional follow-up of suspicious palpable abnormalities. Results were given to the patient verbally at the time of exam. Electronically signed and approved by: Eric Jimenes M.D.
== END | disposition home or self-care (01) ==
LOC: RADMAMWWP 08:38
PROVIDERS: ATTEND Family Medicine
DX: N63.20 Unspecified lump in the left breast, unspecified quadrant (principal)
CPT/HCPCS: 77062; 77066

== ENCOUNTER → 2022-04-29 | Day surgery (SDC) | payer BC ==
--- NOTE | 2022-04-29 14:19 | MM ---
Reason for Exam: Post Procedure Mammogram. Last screening mammogram was performed less than 1 month ago. Patient History: Menarche at age 17. First Full-Term at age 17. Risk Values: Margie 5 year model risk: 0.5%. NCI Lifetime model risk: 6.4%. Prior Study Comparison: 04/23/2022 Left US breast limited LT, [facility]. 04/23/2022 Bilateral MG 3D diag mammo w/cad [facility], [facility]. Tissue Density: Left: There are scattered fibroglandular densities. Findings: Asymmetry within the left breast posterior/middle depth and medial aspect on CC. This is not definitively visualized on the MLO however may be superiorly on MLO view. Measuring up to 11 mm. Overall Assessment: Incomplete: need additional imaging evaluation, BI-RAD 0 Management: Diagnostic Mammogram of the left breast. For asymmetry left breast posterior/middle depth inner upper quadrant. A clinical breast exam by your physician is recommended on an annual basis and results should be correlated with mammographic findings. This exam should not preclude additional follow-up of suspicious palpable abnormalities. Results were given to the patient verbally at the time of exam. Electronically signed and approved by: Shaggy Baez DO
--- NOTE | 2022-05-01 14:46 | USB ---
Risk Values: Margie 5 year model risk: 0.5%. NCI Lifetime model risk: 6.4%. Prior Study Comparison: 04/23/2022 Bilateral MG 3D diag mammo w/cad [facility], [facility]. Pathology Description: Location: 1 o'clock, retroareolar. Marker Left Behind. Needle Type: VaD Cores: 3 Gauge: 14 The procedure of ultrasound guided core biopsy was explained to the patient. Benefits, alternatives, and risks were discussed. An informed consent was then obtained. The patient was placed in supine positioning for imaging and for the procedure. The overlying skin was prepped and draped in usual sterile fashion. Lidocaine buffered with bicarbonate was used as anesthetic into the skin and subcutaneous tissue up to area of concern in the left breast. A nimesh was made with surgical scalpel. Under ultrasound guidance, a 14 biopsy gun device was used to obtain 3 core samples. Following this, a biopsy clip was left in lesion. The patient tolerated the procedure well without any immediate complication. The patient was kept in the radiology department for short stay after the procedure and then discharged home in stable condition. Postprocedure mammogram: The patient was transferred to mammography for physician ordered post procedure mammogram for clip placement verification. Impression: Successful, uncomplicated ultrasound guided core biopsy of area of concern in the left breast, full pathology results to follow. The procedure of ultrasound guided core biopsy was explained to the patient. Benefits, alternatives, and risks were discussed. An informed consent was then obtained. The patient was placed in supine positioning for imaging and for the procedure. The overlying skin was prepped and draped in usual sterile fashion. Lidocaine buffered with bicarbonate was used as anesthetic into the skin and subcutaneous tissue up to area of concern in the left breast. A nimesh was made with surgical scalpel. Under ultrasound guidance, a 14 vacuum assisted biopsy gun device was used to obtain 3 core samples. Following this, a biopsy clip was left in lesion. The patient tolerated the procedure well without any immediate complication. The patient was kept in the radiology department for short stay after the procedure and then discharged home in stable condition. Postprocedure mammogram: The patient was transferred to mammography for physician ordered post procedure mammogram for clip placement verification. Impression: Successful, uncomplicated ultrasound guided core biopsy of area of concern in the left breast, full pathology results to follow. Pathology Results: Result: Benign, Fibroadenoma. RIGHT BREAST, ONE O'CLOCK POSTERIOR NIPPLE, CORE BIOPSY: Fibroadenoma and background fibrocystic changes. Overall Assessment: Benign Management: Diagnostic Mammogram of the left breast in 6 months. Electronically signed and approved by: Shaggy Baez DO
== END ==
LOC: RADUSWWP 08:38
PROVIDERS: ATTEND Surgery
DX: D24.1 Benign neoplasm of right breast (principal); R92.8 Other abnormal and inconclusive findings on diagnostic imaging of breast
CPT/HCPCS: 88305; 77065; 19083; A4648

== ENCOUNTER → 2022-09-15 | Outpatient (CLI) | payer BC ==
[2022-09-15 16:22] LABS: ALT 21 U/L (8-44); AST 19 U/L (13-35); African American GFR (CKD) 121.3 (60.0-200.0); Albumin 4.3 g/dL (3.8-4.9); Albumin/Globulin Ratio 1.59 (1.60-3.17); Alkaline Phosphatase 66 U/L (41-126); Blood Urea Nitrogen 16.8 mg/dL (9.0-27.0); Calcium 9.4 mg/dL (8.7-10.3); Carbon Dioxide 24.2 mmol/L (20.0-27.5); Chloride 106 mmol/L (96-109); Chol/HDL Ratio 2.25 Ratio; Globulin 2.7 g/dL (1.6-3.3); Glucose 86 mg/dL (70-110); LDL Cholesterol,Calculated 52.1 mg/dL (0.0-131.0); Non-African American GFR(CKD) 104.6 (60.0-200.0); Potassium 3.8 mmol/L (3.5-5.5); Sodium 140 mmol/L (135-145); VLDL Calculation 10.74 mg/dL (5.00-40.00)
== END | disposition home or self-care (01) ==
LOC: LABWHC1 08:34
PROVIDERS: ATTEND Internal Medicine Endocrinology, Diabetes & Metabolism
DX: E11.65 Type 2 diabetes mellitus with hyperglycemia (principal)
CPT/HCPCS: 36415; 80053; 80061; 82043; 82570; 83036; 84443